=== PATIENT | female | born 1935 | race Caucasian/White ===

== ENCOUNTER → 2017-08-17 12:37 | Outpatient (CLI) | payer OTHER, SELFPAY ==
--- NOTE | 2017-08-17 | DI.MRI.S_ITS ---
PROCEDURE: MR THORACIC SPINE WO CON INDICATIONS: RADICULOPATHY CERVICAL/THORACIC/LUMBAR SPINE TECHNIQUE: Noncontrast sagittal T1 spine echo and T2 fast spin echo, sagittal STIR, axial T1 and T2 fast spin echo through the thoracic spine. COMPARISON: [facility], , MRI T-SPINE W/O CONTRAST, 05/12/2011, 10:55. [facility], , CT THORAX W/O CONTRAST, 08/28/2008, 7:16. FINDINGS: Image quality: Excellent. Alignment and Curvature: There is grade 1T1-T2, T2-T3 and T3-T4 degenerative anterolisthesis. Bone Marrow: Reactive endplate change is noted adjacent to the T2-T3, T3-T4, T4-T5, T5-T6, T6-T7, T7-T8, T8-T9, T9-T10 and T10-T11 discs. No acute vertebral body compression fractures. Spinal Cord: Visualized spinal cord is normal in size and signal. Paraspinous Soft Tissues: No paravertebral masses. Miscellaneous: Severe T2-T3, T3-T4, T4-T5, T5-T6, T6-T7, T7-T8, T8-T9 and T9-T10 degenerative changes are noted. Moderate T1-T2, T10-T11 and T11-T12 degenerative changes. Severe T3-T4, T10-T11 and T11-T12 facet hypertrophy. Mild T1-T2, T2-T3, T4-T5, T5-T6, T6-T7, T7-T8, T8-T9 and T9-T10 facet hypertrophy. Diffuse T2-T3, T3-T4, T4-T5, T5-T6, T7-T8, T8-T9, T9-T10 and T10-T11 disc bulge noted. Central T11-T12 disc protrusion. Moderate to severe T11-T12 central canal narrowing. Moderate T10-T11 central canal narrowing Mild T9-T10 central canal narrowing. Severe bilateral T11-T12 neural foraminal narrowing. There is flattening deformity of the exiting T11 nerve roots secondary to neural foraminal narrowing. IMPRESSION: 1. Multilevel degenerative disc disease. 2. Multilevel facet arthropathy. 3. Moderate to severe T11-T12 central canal narrowing. Moderate T10-T11 central canal narrowing. Mild T9-T10 central canal narrowing. 4. Severe bilateral T11-T12 neural foraminal narrowing. 5. Flattening deformity exiting T11 nerve roots secondary to neural foraminal narrowing. Please correlate with clinical data. Dictated by: Saira Samuel MD, PhD on 08/17/2017 at 16:05 Approved by: Saira Samuel MD, PhD on 08/17/2017 at 16:15
--- NOTE | 2017-08-17 | DI.MRI.S_ITS ---
PROCEDURE: MR LUMBAR SPINE WO CON INDICATIONS: RADICULOPATHY CERVICAL/THORACIC/LUMBAR SPINE TECHNIQUE: Noncontrast sagittal T1 spin echo and T2 fast echo, sagittal STIR, axial T1 and T2 fast spin echo through the lumbar spine. In cases with scoliosis, additional coronal T2 fast spin echo may be performed. COMPARISON: [facility], [facility], MRI L-SPINE W/O CONTRAST, 05/12/2011, 10:24. FINDINGS: Image quality: Excellent. Alignment and Curvature: There is grade 1 L5-S1 spondylolisthesis secondary to bilateral L5 pars interarticularis defects. Bone Marrow: Reactive endplate change is noted adjacent to the L2-L3, L3-L4, L4-L5 and L5-S1 discs. No acute vertebral body compression fractures. Spinal Cord: Conus medullaris terminates at the T12-L1 disc level. Visualized cord demonstrates normal signal and size. Paraspinous Soft Tissues: No paravertebral masses. Bilateral renal cysts. T12-L1: Loss of disc space signal. Large central disc extrusion. Mild central canal secondary to disc disease. Mild bilateral neural foraminal narrowing secondary to disc disease. No neural impingement. L1-L2: Loss of disc signal and mild loss of disc height. Mild to moderate diffuse disc bulge. Mild narrowing of the central canal secondary to disc disease. Mild bilateral neural foraminal narrowing secondary to disease. No neural impingement. L2-L3: Loss of disc signal and height. Mild to moderate diffuse disc bulge. Mild facet and moderate ligamentum flavum hypertrophy. Moderate narrowing of the central canal secondary to disc disease and posterior element hypertrophy. Severe right and mild left neural foraminal narrowing secondary to disc and facet disease with flattening deformity of the exiting right L2 nerve root. L3-L4: Loss of disc signal and height. Mild to moderate diffuse disc bulge. Mild facet and severe ligamentum flavum hypertrophy. Severe central stenosis secondary to disc disease and posterior element hypertrophy. Moderate right and severe left neural foraminal narrowing secondary to disc and facet disease with flattening deformity the exiting left L3 nerve root. L4-L5: Loss of disc signal. Mild to moderate diffuse disc bulge. Moderate facet hypertrophy. No central stenosis. Moderate to severe right and severe left neural foraminal narrowing secondary to disc and facet disease with slight flattening deformity the exiting right L4 nerve root and marked flattening and deformity exiting left L4 nerve root. L5-S1: Loss of disc signal and height. Mild, diffuse disc bulge. Moderate bilateral facet hypertrophy. No central stenosis. Severe bilateral neural foraminal narrowing secondary to disc disease in his neck spondylolisthesis with flattening deformity exiting L5 nerve roots bilaterally. IMPRESSION: 1. Grade 1 L5-S1 isthmic spondylolisthesis. 2. Multilevel degenerative disc disease. 3. Multilevel facet arthropathy. 4. Severe L3-L4 central canal stenosis. Moderate L2-L3 central canal narrowing. Mild T12-L1 and L1-L2 Central canal narrowing. 5. Severe bilateral L5-S1 neural foraminal narrowing. Moderate to severe right and severe left L4-L5 neural foraminal narrowing. Moderate right and severe left L3-L4 neural foraminal narrowing. Severe right and mild left L2-L3 neural foraminal narrowing. Mild bilateral T12-L1 and L1-L2 neural foraminal narrowing. Dictated by: Saira Samuel MD, PhD on 08/17/2017 at 16:38 Approved by: Saria Samuel MD, PhD on 08/17/2017 at 16:45
--- NOTE | 2017-08-17 | DI.MRI.S_ITS ---
PROCEDURE: MR CERVICAL SPINE WO CON INDICATIONS: RADICULOPATHY CERVICAL/THORACIC/LUMBAR SPINE TECHNIQUE: Noncontrast sagittal T1 spin echo and T2 fast spin echo, sagittal STIR, foraminal oblique sagittal T2 fast spin echo, and axial gradient echo or T2 fast spin echo through the cervical spine. COMPARISON: None. FINDINGS: Image quality: Excellent. Alignment and Curvature: There is trace C7-T1 anterolisthesis. Bone Marrow: Reactive endplate change is noted adjacent to the C3-C4, C4-C5, C5-C6 and C6-C7 discs. Spinal Cord: Visualized spinal cord has normal size and signal. No cerebellar tonsillar herniation. Paraspinous Soft Tissues: No paravertebral masses. Prevertebral soft tissues are normal in thickness. C2-C3: Loss of disc signal and height. Mild, diffuse disc bulge. Mild narrowing the central canal secondary to disc disease. Mild right facet hypertrophy. Severe right and mild left neural foraminal narrowing secondary to disc disease and right facet hypertrophy with flattening deformity of the exiting right C3 nerve root. C3-C4: Loss of disc signal and height. Mild, diffuse disc bulge. Mild central canal secondary to disc disease. Mild bilateral facet and uncovertebral joint hypertrophy. Severe bilateral neural foraminal narrowing secondary to disc disease, facet hypertrophy and uncovertebral joint hypertrophy with flattening deformity the exiting C4 nerve roots bilaterally. C4-C5: Loss of disc signal and height. Mild, diffuse disc bulge. Large central disc protrusion superimposed on diffuse disc bulge with severe narrowing of the central canal secondary to disc disease. Mild bilateral facet and uncovertebral joint hypertrophy. Severe bilateral neural foraminal narrowing secondary to disc disease, facet hypertrophy and uncovertebral joint hypertrophy with flattening deformity exiting C5 nerve roots bilaterally. C5-C6: Loss of disc signal and height. Moderate, diffuse disc bulge. Severe narrowing the central canal secondary to disc disease. Moderate bilateral facet hypertrophy. Mild bilateral uncovertebral joint hypertrophy. Severe bilateral neural foraminal narrowing secondary to disc disease, facet hypertrophy and uncovertebral joint hypertrophy with flattening deformity of the exiting C6 nerve roots bilaterally. C6-C7: Loss of disc signal and height. Mild, diffuse disc bulge. Mild narrowing of the central canal secondary to disc disease. Mild bilateral facet hypertrophy. Mild bilateral uncovertebral joint hypertrophy. Severe bilateral neural foraminal narrowing secondary to disc disease, facet hypertrophy and uncovertebral joint hypertrophy with flattening deformity of the exiting C7 nerve roots bilaterally. C7-T1: Loss of disc signal. No central stenosis. No neural foraminal narrowing. No neural impingement. IMPRESSION: 1. Multilevel degenerative disc disease. 2. Multilevel facet hypertrophy and uncovertebral joint hypertrophy. 3. Severe C4-C5 and C5-C6 the central canal narrowing. Mild C2-C3, C3-C4 and C6-C7 central canal narrowing. 4. Severe bilateral C3-C4, C4-C5, C5-C6 and C6-C7 neural foraminal narrowing. Severe right and mild left C2-C3 neural foraminal narrowing Dictated by: Saira Samuel MD, PhD on 08/17/2017 at 16:46 Approved by: Saira Samuel MD, PhD on 08/17/2017 at 16:53
== END ==
PROVIDERS: PCP Family Medicine; Visit Provider Psychiatry & Neurology Neurology
DX: M47.814 Spondylosis without myelopathy or radiculopathy, thoracic region (principal); M99.72 Connective tissue and disc stenosis of intervertebral foramina of thoracic region; M43.17 Spondylolisthesis, lumbosacral region; M51.36 Other intervertebral disc degeneration, lumbar region; M47.816 Spondylosis without myelopathy or radiculopathy, lumbar region; M48.061 Spinal stenosis, lumbar region without neurogenic claudication; M50.30 Other cervical disc degeneration, unspecified cervical region; M47.812 Spondylosis without myelopathy or radiculopathy, cervical region; M99.71 Connective tissue and disc stenosis of intervertebral foramina of cervical region
CPT/HCPCS: 72141; 72146; 72148

== ENCOUNTER → 2018-02-14 11:00 | Outpatient (CLI) | payer OTHER, SELFPAY ==
[2018-02-14 12:26] LABS: Add Manual Diff / Slide Review NO; Eosinophils Percent Auto 1.3 % (2-4); Hematocrit 37.9 % (36-46); Hemoglobin 12.6 g/dL (12.0-16.0); Lymphocytes Percent Auto 20.8 % (25-40); Mean Corpuscular HGB Conc 33.4 % (30-36); Mean Corpuscular Hemoglobin 32.8 PG (26-34); Mean Corpuscular Volume 98.1 fL (80-100); Monocytes Percent Auto 10.6 % (3-14); Neutrophils Absolute Auto 4600 /uL (3000-5900); Neutrophils Percent Auto 66.3 % (50-75); Platelet Count 220 X10^3/uL (150-400); Red Blood Cell Count 3.86 X10^6/uL (4.0-5.2); Red Cell Distribution Width 13.2 % (11.6-14.8); White Blood Cell Count 6.9 X10^3/uL (4.5-11.0)
[2018-02-14 12:50] LABS: Erythrocyte Sedimentation Rate 7 MM/HR (0-20)
[2018-02-14 20:29] LABS: C-Reactive Protein Quant < 0.5 mg/dL (<1.0)
== END ==
PROVIDERS: PCP Family Medicine; Visit Provider Specialist
DX: M31.6 Other giant cell arteritis (principal)
CPT/HCPCS: 36415; 85025; 85651; 86140

== ENCOUNTER → 2018-03-05 09:27 | Outpatient (CLI) | payer OTHER, SELFPAY ==
--- NOTE | 2018-03-05 | DI.RAD.S_ITS ---
PROCEDURE: XR SHOULDER LT MIN 2V INDICATIONS: SHOULDER PAIN TECHNIQUE: 3 views of the shoulder were acquired. COMPARISON: None. FINDINGS: Bones: No fractures or dislocations. No suspicious bony lesions. Visualized ribs appear intact. Mild to moderate glenohumeral joint and acromioclavicular joint osteophyte is is seen. Soft tissues: No suspicious soft tissue calcifications. IMPRESSION: Mild to moderate left shoulder joint osteoarthritis. No fracture or dislocation. Dictated by: Henrique Ledesma M.D. on 03/05/2018 at 14:10 Approved by: Henrique Ledesma M.D. on 03/05/2018 at 14:11
--- NOTE | 2018-03-05 09:28 | DI.MRI.S_ITS ---
PROCEDURE: MR HEAD/BRAIN WO CON INDICATIONS: New worsening head pain with standing, gait disturbance and TECHNIQUE: Noncontrast axial T1 spin echo, axial T2 fast spin echo, sagittal and axial FLAIR, coronal T2 fast spin echo, axial gradient echo, axial diffusion and ADC through the brain. COMPARISON: [facility], MR, BRAIN W&WO CONTRAST, 10/25/2012, 13:27. FINDINGS: Image quality: Excellent. CSF Spaces: Basal cisterns are patent. No extra-axial fluid collections. Ventricles are normal in size and shape. Brain: No intracranial masses or hemorrhage. Garcia/white matter interface is normal. Brainstem appears normal. Diffusion-weighted images demonstrate no acute ischemic insult. No areas of encephalomalacia. Minimal periventricular and subcortical white matter chronic microvascular ischemic changes noted. Mild, diffuse cerebral volume loss. Normal intravascular flow voids are present. Skull and face: Calvarium has normal marrow signal. Orbits appear normal. Sinuses: Mild mucosal thickening noted in the right maxillary sinus. The mastoids are clear. IMPRESSION: 1. No acute intracranial disease process. 2. No areas of acute or chronic infarction. 3. No abnormal intracranial mass. 4. Mild, diffuse cerebral on loss stable compared to 10/25/12. 5. Minimal periventricular and subcortical white matter chronic microvascular ischemic changes stable compared to 10/25/2012. Dictated by: Saira Samuel MD, PhD on 03/05/2018 at 17:08 Approved by: Saira Samuel MD, PhD on 03/05/2018 at 17:13
== END ==
PROVIDERS: Family Provider Psychiatry & Neurology Neurology; PCP Family Medicine; Referring Provider Orthopaedic Surgery Sports Medicine; Visit Provider Specialist
DX: R51 Headache (principal); M19.012 Primary osteoarthritis, left shoulder; M25.512 Pain in left shoulder; R26.9 Unspecified abnormalities of gait and mobility; R20.0 Anesthesia of skin
CPT/HCPCS: 70551; 73030

== ENCOUNTER → 2018-05-04 13:22 | Outpatient (CLI) | payer OTHER, SELFPAY | PROVIDERS: Family Provider Family Medicine; PCP Family Medicine; Visit Provider Psychiatry & Neurology Neurology | DX: G62.9 Polyneuropathy, unspecified (principal) ==

== ENCOUNTER → 2018-05-09 10:39 | Outpatient (CLI) | payer OTHER, SELFPAY ==
[2018-05-09 14:02] LABS: HEMOLYSIS < 15 (0-50); Iron 89 ug/dL (37-170)
[2018-05-09 14:13] LABS: Percent Iron Saturation 34 % (15-50); Total Iron Binding Capacity 260 ug/dL (265-497); Transferrin 211 mg/dL (206-381)
[2018-05-09 15:09] LABS: Folate > 20.0 ng/mL (2.76-20.0); Vitamin B12 749 pg/mL (239-931)
[2018-05-11 17:21] LABS: Zinc 64 mcg/dL (60-130)
[2018-05-13 05:37] LABS: Vitamin B1 135 nmol/L (78-185)
[2018-05-16 11:24] LABS: Arsenic < 2 mcg/L (< 23); Lead, Blood 13 mcg/dL (< 5)
[2018-05-16 13:17] LABS: Mercury, Blood < 2
== END ==
PROVIDERS: Family Provider Family Medicine; PCP Family Medicine; Visit Provider Psychiatry & Neurology Neurology
DX: G62.9 Polyneuropathy, unspecified (principal)
CPT/HCPCS: 36415; 82300; 82525; 82607; 82746; 83540; 83550; 83735; 83825; 84425; 84630

== ENCOUNTER → 2018-07-12 13:11 | Outpatient (CLI) | payer OTHER, SELFPAY ==
[2018-07-12 17:23] LABS: BUN Creatinine Ratio 19.1 (6-22); Blood Urea Nitrogen 21 mg/dL (7-17); Calcium 9.9 mg/dL (8.4-10.2); Carbon Dioxide 25 mmol/L (22-32); Chloride 104 mmol/L (98-107); Estimated Glomerular Filt Rate 47.7 mL/min (>60); Glucose 82 mg/dL (80-110); HEMOLYSIS < 15 (0-50); Sodium 139 mmol/L (137-145)
[2018-07-12 17:38] LABS: Free T4, Direct Thyroxine 1.47 ng/dL (0.78-2.19)
== END ==
PROVIDERS: Family Provider Psychiatry & Neurology Neurology; PCP Family Medicine; Visit Provider Family Medicine
DX: E03.8 Other specified hypothyroidism (principal); E06.3 Autoimmune thyroiditis; Z51.81 Encounter for therapeutic drug level monitoring
CPT/HCPCS: 36415; 80048; 84439

== ENCOUNTER → 2018-08-17 08:32 | Outpatient (CLI) | payer OTHER, SELFPAY ==
[2018-08-17 10:08] LABS: Add Manual Diff / Slide Review NO; Basophils Absolute Auto 100 /uL (0-100); Eosinophils Absolute Auto 100 /uL (0-450); Eosinophils Percent Auto 2.1 % (2-4); Hematocrit 34.2 % (36-46); Hemoglobin 11.7 g/dL (12.0-16.0); Lymphocytes Absolute Auto 1400 /uL (1100-4500); Lymphocytes Percent Auto 22.9 % (25-40); Mean Corpuscular HGB Conc 34.2 % (30-36); Mean Corpuscular Hemoglobin 32.8 PG (26-34); Monocytes Absolute Auto 600 /uL (0-900); Monocytes Percent Auto 10.3 % (3-14); Neutrophils Absolute Auto 4000 /uL (1500-7000); Neutrophils Percent Auto 63.7 % (50-75); Platelet Count 215 X10^3/uL (150-400); Red Blood Cell Count 3.56 X10^6/uL (4.0-5.2); Red Cell Distribution Width 12.9 % (11.6-14.8); White Blood Cell Count 6.2 X10^3/uL (4.5-11.0)
[2018-08-17 10:15] LABS: Alanine Aminotransferase 16 IU/L (9-52); Albumin 4.4 g/dL (3.5-5.0); Albumin Globulin Ratio 1.5 (1.0-2.8); Alkaline Phosphatase 79 U/L (38-126); Aspartate Aminotransferase 27 IU/L (14-36); Bilirubin Total 0.4 mg/dL (0.2-1.3); Blood Urea Nitrogen 24 mg/dL (7-17); Calcium 9.9 mg/dL (8.4-10.2); Carbon Dioxide 24 mmol/L (22-32); Chloride 103 mmol/L (98-107); Estimated Glomerular Filt Rate 43.1 mL/min (>60); Globulin 2.9 g/dL (1.7-4.1); Glucose 102 mg/dL (80-110); HEMOLYSIS < 15 (0-50); Potassium 4.7 mmol/L (3.4-5.1); Sodium 137 mmol/L (137-145); Total Protein 7.3 g/dL (6.3-8.2)
[2018-08-17 11:24] LABS: Free T4, Direct Thyroxine 1.28 ng/dL (0.78-2.19)
[2018-08-17 11:37] LABS: Thyroid Stimulating Hormone 0.49 uIU/mL (0.47-4.68)
== END ==
PROVIDERS: PCP Family Medicine; Visit Provider Family Medicine
DX: Z86.2 Personal history of diseases of the blood and blood-forming organs and certain disorders involving the immune mechanism (principal); K92.1 Melena; E03.8 Other specified hypothyroidism; E06.3 Autoimmune thyroiditis; I10 Essential (primary) hypertension
CPT/HCPCS: 36415; 80053; 84439; 84443; 85025

== ENCOUNTER → 2018-12-14 09:27 | Outpatient (CLI) | payer OTHER, SELFPAY ==
[2018-12-14 10:15] LABS: Add Manual Diff / Slide Review NO; Basophils Absolute Auto 100 /uL (0-100); Basophils Percent Auto 1.4 % (0-2); Eosinophils Absolute Auto 100 /uL (0-450); Eosinophils Percent Auto 2.3 % (2-4); Hematocrit 38.6 % (36-46); Lymphocytes Absolute Auto 1100 /uL (1100-4500); Lymphocytes Percent Auto 22.7 % (25-40); Mean Corpuscular HGB Conc 33.7 % (30-36); Mean Corpuscular Volume 95.1 fL (80-100); Monocytes Absolute Auto 600 /uL (0-900); Monocytes Percent Auto 11.9 % (3-14); Neutrophils Absolute Auto 2900 /uL (1500-7000); Neutrophils Percent Auto 61.7 % (50-75); Platelet Count 171 X10^3/uL (150-400); Red Blood Cell Count 4.06 X10^6/uL (4.0-5.2); Red Cell Distribution Width 14.2 % (11.6-14.8); White Blood Cell Count 4.7 X10^3/uL (4.5-11.0)
[2018-12-14 10:50] LABS: HEMOLYSIS < 15 (0-50); Iron 109 ug/dL (37-170)
[2018-12-14 10:52] LABS: Alanine Aminotransferase 18 IU/L (9-52); Albumin 4.3 g/dL (3.5-5.0); Albumin Globulin Ratio 1.4 (1.0-2.8); Alkaline Phosphatase 87 U/L (38-126); Aspartate Aminotransferase 26 IU/L (14-36); BUN Creatinine Ratio 18.3 (6-22); Bilirubin Total 0.6 mg/dL (0.2-1.3); Blood Urea Nitrogen 22 mg/dL (7-17); Calcium 10.2 mg/dL (8.4-10.2); Carbon Dioxide 25 mmol/L (22-32); Chloride 103 mmol/L (98-107); Estimated Glomerular Filt Rate 43.1 mL/min (>60); Glucose 97 mg/dL (80-110); HEMOLYSIS < 15 (0-50); Sodium 139 mmol/L (137-145); Total Protein 7.3 g/dL (6.3-8.2)
[2018-12-14 10:54] LABS: Potassium 5.4 mmol/L (3.4-5.1)
[2018-12-14 11:04] LABS: Percent Iron Saturation 41 % (15-50); Total Iron Binding Capacity 269 ug/dL (265-497); Transferrin 233 mg/dL (206-381)
[2018-12-14 11:15] LABS: Free T4, Direct Thyroxine 1.66 ng/dL (0.78-2.19)
[2018-12-14 11:29] LABS: Thyroid Stimulating Hormone 0.36 uIU/mL (0.47-4.68)
== END ==
PROVIDERS: PCP Family Medicine; Visit Provider Family Medicine
DX: Z86.2 Personal history of diseases of the blood and blood-forming organs and certain disorders involving the immune mechanism (principal); K92.1 Melena; E03.8 Other specified hypothyroidism; E06.3 Autoimmune thyroiditis
CPT/HCPCS: 36415; 80053; 83540; 83550; 84439; 84443; 85025

== ENCOUNTER → 2019-01-22 12:20 | Outpatient (CLI) | payer OTHER, SELFPAY ==
--- NOTE | 2019-01-22 12:24 | DI.RAD.S_ITS ---
PROCEDURE: XR CERVICAL SPINE 4V OR 5V INDICATIONS: Neck pain TECHNIQUE: 6 views of the cervical spine acquired. COMPARISON: None. FINDINGS: Bones: No fractures or dislocations to the C7 level. Multilevel degenerative endplate sclerosis and spurring. Diffuse facet arthropathy. Straightening of the normal lordotic curvature. Severe diffuse narrowing of the cervical disc spaces with mild sparing at C2-C3 and C3-C4. On the right, diffuse moderate narrowing of the neural foramen from C4-C5, C5-C6 On the left, moderate to severe narrowing of the C4-C5 foramen Soft tissues: No prevertebral soft tissue swelling. IMPRESSION: Multilevel cervical spondylosis and facet arthropathy as detailed above. Bilateral bony foraminal narrowing Dictated by: Sriram Ray M.D. on 01/22/2019 at 17:01 Approved by: Sriram Ray M.D. on 01/22/2019 at 17:04
== END ==
PROVIDERS: Family Provider Family Medicine; PCP Family Medicine; Visit Provider Physical Medicine & Rehabilitation
DX: M54.2 Cervicalgia (principal); R51 Headache; M48.02 Spinal stenosis, cervical region; M47.22 Other spondylosis with radiculopathy, cervical region
CPT/HCPCS: 72050

== ENCOUNTER → 2019-01-22 12:56 | Outpatient (CLI) | payer OTHER, SELFPAY ==
[2019-01-22 13:52] LABS: BUN Creatinine Ratio 18.3 (6-22); Blood Urea Nitrogen 22 mg/dL (7-17); Calcium 9.2 mg/dL (8.4-10.2); Carbon Dioxide 26 mmol/L (22-32); Chloride 103 mmol/L (98-107); Estimated Glomerular Filt Rate 43.1 mL/min (>60); Glucose 101 mg/dL (80-110); HEMOLYSIS < 15 (0-50); Potassium 5.1 mmol/L (3.4-5.1); Sodium 137 mmol/L (137-145)
== END ==
PROVIDERS: PCP Family Medicine; Visit Provider Family Medicine
DX: I10 Essential (primary) hypertension (principal)
CPT/HCPCS: 36415; 80048

== ENCOUNTER 2019-02-07 09:53 | Outpatient (CLI) | payer OTHER, SELFPAY ==
[2019-02-07] VITALS (9 sets, daily range): BP systolic 98–157; BP diastolic 53–86; PULSE 58–81; RESP 14–18; TEMP 36.3; O2SAT 93–100
--- NOTE | 2019-02-07 09:55 | DI.RAD.S_ITS ---
PROCEDURE: PAIN C/T INTERLAMINAR INJECT INDICATIONS: SPINAL STENOSIS FINDINGS: Fluoroscopic spot filming was performed to verify placement of spinal needles at the C6-C7 level(s), as labeled on the films. Appropriate location(s) of the needle tip(s) was confirmed by injection of iodinated contrast. Dictated by: Sriram Ray M.D. on 02/07/2019 at 14:51 Approved by: Sriram Ray M.D. on 02/07/2019 at 14:52
[2019-02-07] MEDS: MIDAZOLAM 5 MG/5 ML VIAL IV (11:23)
[2019-02-07] MEDS: IOPAMIDOL 15 ML VIAL 3 ML INJ (11:30)
[2019-02-07] MEDS: LIDOCAINE 1% 20 ML 5 ML INJ (11:31)
[2019-02-07] MEDS: DEXAMETHASONE 10 MG/ML VIAL 30 MG INJ (11:31)
--- NOTE | 2019-02-07 11:34 | PC.NURSE ---
MD AWARE OF PERSISTENTLY FALLING WAYNE'S DURING PROCEDURE. PT AROUSABLE AND ABLE TO FOLLOW COMMANDS AT ALL TIMES.
--- NOTE | 2019-02-07 11:35 | PC.NURSE ---
ASSISTING PT OFF TABLE AND TRANSPORTING TO POST PROC AREA IN STABLE CONDITION.
--- NOTE | 2019-02-07 11:41 | PM.PROC.1 ---
Procedures Date/Time Date of procedure: 02/07/19 Time of procedure: 11:41 General Procedure description: PREOP DIAGNOSIS 1. CERVICAL STENOSIS, 2. CERVICAL HNP WITH UPPER EXTREMITY RADICULAR FEATURES, POST OP DIAGNOSIS 1. CERVICAL STENOSIS, 2. CERVICAL HNP WITH UPPER EXTREMITY RADICULAR FEATURES, PROCEDURES 1. FLUORSCOPICALLY GUIDED CONTRAST CONTROLLED INTERLAMINAR EPIDURAL STEROID INJECTION - C6/7 TL SHAHID PHYSICIAN: Shayne Jones, DO INDICATIONS Aida is referred by Dr. Arora for treatment of Cervical HNP with Upper Extremity Paresthesias. FINDINGS Cervical Stenosis due to disc deterioration and nerve root irritation and nerve root irritation DESCRIPTION OF PROCEDURE Fluoroscopically guided, contrast-controlled C6/7 translaminar epidural steroid injection with conscious sedation. Following review of allergy and review of potential side effects and complications, including, but not necessarily limited to, infection, allergic reaction, local tissue breakdown, temporary as well as permanent nerve injury, stroke, paralysis, and possible , the patient indicated that patient understood and agreed to proceed. An informed consent document was signed by the patient, witnessed by a nurse, and placed in the patient's chart. Additionally, other treatment options including modalities, medications, and physical therapy were reviewed with the patient. After review of previous anaesthesic history and IV conscious sedation the patient was deemed safe to proceed with todays procedure with IV conscious sedation as ASA class II designation. Safety time-out was performed to confirm patient ID, procedure to be performed and site of procedure. IV sedation was accomplished with a combination of 3mg of Versed administered by the RN after DO order, titrated to patient comfort during the course of the procedure while the patient remained responsive to all verbal commands. In the prone position, following sterile prep and drape of the cervical region, the C6/7 translaminar space was identified fluoroscopically. The skin was anesthetized via a 25-gauge 1.5-inch needle with 1% lidocaine solution. At this point, a 25-gauge, 2.5-inch short bevel spinal needle was atraumatically introduced and advanced under fluoroscopic guidance into epidural space at the C6/7 translaminar space. Depth was confirmed on lateral view. Radiological data, including multiple fluoroscopic views of the cervical spine, reveal a spinal needle at the C6/7 translaminar space. Lateral views then show placement of the needle in the epidural space. Subsequent views show contrast material flowing superiorly and inferiorly in the epidural space. DSA fluoroscopy with live contrast injection, once again, confirmed no vascular or intrathecal uptake. At this point, using loss of resistance technique with saline and air, the epidural space was entered. Following negative aspiration, injection of approximately 1.5 cc of Isovue-200 with live fluoroscopy in the AP view confirmed epidural flow in the epidural space without vascular or intrathecal uptake observed. Subsequently, a test dose of 1 cc of 1% lidocaine solution was injected and patient was observed for two minutes without signs or symptoms of complications, including abdominal pain, shortness of breath, bilateral upper or lower extremity weakness, nausea and vomiting, prior to steroid injection. At this point, 2cc or 20mg of dexamethasone was then injected without incident. The patient tolerated the procedure well without signs or symptoms of complications prior to being transferred to the recovery area for further monitoring, The patient was then transferred to the recovery area where they were observed for an appropriate period of time after the injection. The patient reported a VAS score of 6 prior to the procedure and a post-procedure VAS of 0. Total Fluoroscopy Time: 37.0 seconds Total Conscious Time: 24min POST OP INSTRUCTIONS The patient was provided a Pain Log to continue to record their response to the target-specific procedure prior to follow-up visit with the referring provider. Additionally, specific post-injection care instructions and a contact number to our office were provided if concerns arise regarding possible complications associated with the procedure are suspected. Shayne Jones DO Complications: none
--- NOTE | 2019-02-07 17:34 | PC.NURSE ---
late entry discharge note--patient arrived for post procedure monitoring. Drowsy but awake and responding appropriately to verbal commands. VSS, O2 sats WNL on RA. Allowed to sleep for a short time. Respirations regular and unlabored. Daughter at chairside. Pain level 2/10. tolerated po without nausea. discharge instructions given and explained to patient and daughter with good understanding. Stable for discharge to home w/c to car with daughter at 1225
== END 2019-02-07 12:25 ==
PROVIDERS: PCP Family Medicine; Visit Provider Physical Medicine & Rehabilitation
DX: M48.02 Spinal stenosis, cervical region (principal); M50.123 Cervical disc disorder at C6-C7 level with radiculopathy; R20.2 Paresthesia of skin
CPT/HCPCS: 62321; 99152; J1100; J2250; J3010

== ENCOUNTER → 2019-04-29 09:14 | Outpatient (CLI) | payer MEDICARE, SELFPAY ==
[2019-04-29 10:21] LABS: Add Manual Diff / Slide Review NO; Basophils Absolute Auto 100 /uL (0-100); Eosinophils Absolute Auto 200 /uL (0-450); Hematocrit 38.3 % (36-46); Hemoglobin 12.9 g/dL (12.0-16.0); Lymphocytes Absolute Auto 1600 /uL (1100-4500); Lymphocytes Percent Auto 25.4 % (25-40); Mean Corpuscular HGB Conc 33.7 % (30-36); Mean Corpuscular Hemoglobin 32.1 PG (26-34); Mean Corpuscular Volume 95.4 fL (80-100); Monocytes Absolute Auto 800 /uL (0-900); Neutrophils Absolute Auto 3700 /uL (1500-7000); Neutrophils Percent Auto 58.6 % (50-75); Platelet Count 208 X10^3/uL (150-400); Red Blood Cell Count 4.01 X10^6/uL (4.0-5.2); Red Cell Distribution Width 13.1 % (11.6-14.8); White Blood Cell Count 6.3 X10^3/uL (4.5-11.0)
[2019-04-29 10:38] LABS: Alanine Aminotransferase 17 IU/L (<35); Albumin 4.5 g/dL (3.5-5.0); Albumin Globulin Ratio 1.5 (1.0-2.8); Alkaline Phosphatase 81 U/L (38-126); Aspartate Aminotransferase 30 IU/L (14-36); BUN Creatinine Ratio 18.3 (6-22); Bilirubin Total 0.3 mg/dL (0.2-1.3); Blood Urea Nitrogen 22 mg/dL (7-17); Calcium 9.8 mg/dL (8.4-10.2); Carbon Dioxide 25 mmol/L (22-32); Chloride 101 mmol/L (98-107); Estimated Glomerular Filt Rate 43.1 mL/min (>60); Globulin 3.1 g/dL (1.7-4.1); Glucose 119 mg/dL (80-110); HEMOLYSIS < 15 (0-50); Potassium 4.7 mmol/L (3.4-5.1); Sodium 137 mmol/L (137-145); Total Protein 7.6 g/dL (6.3-8.2)
== END ==
PROVIDERS: PCP Family Medicine; Visit Provider Psychiatry & Neurology Neurology
DX: Z51.81 Encounter for therapeutic drug level monitoring (principal)
CPT/HCPCS: 36415; 80053; 85025

== ENCOUNTER → 2019-09-19 09:25 | Outpatient (CLI) | payer MEDICARE, SELFPAY ==
[2019-09-19 10:37] LABS: Add Manual Diff / Slide Review NO; Basophils Absolute Auto 100 /uL (0-100); Basophils Percent Auto 0.9 % (0-2); Eosinophils Absolute Auto 100 /uL (0-450); Eosinophils Percent Auto 1.6 % (2-4); Hematocrit 38.1 % (36-46); Lymphocytes Absolute Auto 1200 /uL (1100-4500); Lymphocytes Percent Auto 15.5 % (25-40); Mean Corpuscular HGB Conc 34.2 % (30-36); Mean Corpuscular Hemoglobin 33.2 PG (26-34); Mean Corpuscular Volume 96.9 fL (80-100); Monocytes Absolute Auto 600 /uL (0-900); Monocytes Percent Auto 8.2 % (3-14); Neutrophils Absolute Auto 5500 /uL (1500-7000); Neutrophils Percent Auto 73.8 % (50-75); Platelet Count 216 X10^3/uL (150-400); Red Blood Cell Count 3.93 X10^6/uL (4.0-5.2); Red Cell Distribution Width 12.8 % (11.6-14.8); White Blood Cell Count 7.5 X10^3/uL (4.5-11.0)
[2019-09-19 10:44] LABS: Hemoglobin A1C% w Est Avg Glu 5.3 % (4.0-6.0)
[2019-09-19 10:53] LABS: Alanine Aminotransferase 18 IU/L (<35); Albumin 4.5 g/dL (3.5-5.0); Albumin Globulin Ratio 1.5 (1.0-2.8); Alkaline Phosphatase 84 U/L (38-126); Aspartate Aminotransferase 29 IU/L (14-36); BUN Creatinine Ratio 16.4 (6-22); Bilirubin Total 0.3 mg/dL (0.2-1.3); Blood Urea Nitrogen 19 mg/dL (7-17); Carbon Dioxide 25 mmol/L (22-32); Chloride 101 mmol/L (98-107); Estimated Glomerular Filt Rate 44.7 mL/min (>60); Glucose 138 mg/dL (80-110); HEMOLYSIS < 15 (0-50); Potassium 4.9 mmol/L (3.4-5.1); Sodium 134 mmol/L (137-145); Total Protein 7.5 g/dL (6.3-8.2)
[2019-09-19 11:24] LABS: TSH w/ Reflex to FT4 < 0.02 uIU/mL (0.47-4.68)
[2019-09-19 12:00] LABS: Free T4, Direct Thyroxine 1.47 ng/dL (0.78-2.19)
== END ==
PROVIDERS: PCP Family Medicine; Referring Provider Family Medicine; Visit Provider Family Medicine
DX: I10 Essential (primary) hypertension (principal); E03.9 Hypothyroidism, unspecified; R73.09 Other abnormal glucose; R53.83 Other fatigue
CPT/HCPCS: 36415; 80053; 83036; 84439; 84443; 85025

== ENCOUNTER → 2019-10-11 10:06 | Outpatient (CLI) | payer MEDICARE, SELFPAY ==
--- NOTE | 2019-10-11 | DI.RAD.S_ITS ---
PROCEDURE: XR HIP W PEL IF DONE LT MIN 4V INDICATIONS: Bilateral hip pain TECHNIQUE: AP pelvis with lateral view(s) of the left and right hip(s). COMPARISON: CT, KIDNEY/ URETER/BLADDER, 06/01/2011, 9:32. FINDINGS: Bones: No fractures or dislocations. Pelvic ring appears intact. No suspicious bony lesions. Mild joint narrowing with periarticular osteophyte formation. Degenerative disc and facet disease involves the inferior lumbar spine. Soft tissues: The visualized bowel gas pattern is normal. No suspicious soft tissue calcifications. IMPRESSION: Mild symmetric hip joint degeneration. Dictated by: Sachin Alberto [facility] Interpreted: Eulogio Ivory MD on 10/11/2019 at 11:03 Approved by: Eulogio Ivory M.D. on 10/11/2019 at 14:02
--- NOTE | 2019-10-11 | DI.CT.S_ITS ---
PROCEDURE: CT CHEST HIGH RESOLUTION INDICATIONS: Generalized hyperhidrosis TECHNIQUE: Noncontrast 1.0 and 5.0 mm thick contiguous axial sections from the pulmonary apex to the posterior costophrenic angles, with 7 mm thick coronal and sagittal MIP reformats. 1 mm thick dynamic expiratory images acquired through the upper, mid, and lower lungs. 1.0 mm thick axial sections acquired from the reggie to the posterior costophrenic angles in the prone end-inspiration position. For radiation dose reduction, the following was used: automated exposure control, adjustment of mA and/or kV according to patient size. COMPARISON: None. FINDINGS: Image quality: Excellent. Lungs: There are several scattered areas of linear scarring within the lung parenchyma bilaterally but no sign of active airspace disease or underlying pulmonary fibrosis or bronchiectasis. Pleura: No pleural effusions or pneumothorax. Mediastinum: Heart size is normal. No pericardial effusion. Thoracic aorta and central pulmonary arteries are normal in size. Esophagus is normal in caliber. Bones and chest wall: No suspicious bony lesions. No vertebral body compression fractures. Abdomen: Visualized upper abdominal solid organs and bowel loops appear normal. IMPRESSION: There is minimal linear scarring at the lung parenchyma bilaterally and no sign of alveolitis or pulmonary fibrosis. No CHF is seen. Dictated by: Eulogio Ivory M.D. on 10/11/2019 at 13:43 Approved by: Eulogio Ivory M.D. on 10/11/2019 at 13:45
== END ==
PROVIDERS: PCP Family Medicine; Referring Provider Internal Medicine Pulmonary Disease; Visit Provider Internal Medicine Pulmonary Disease
DX: R61 Generalized hyperhidrosis (principal); J47.9 Bronchiectasis, uncomplicated; M25.551 Pain in right hip; M25.552 Pain in left hip; M16.0 Bilateral primary osteoarthritis of hip
CPT/HCPCS: 71250; 73522

== ENCOUNTER → 2019-12-14 09:44 | Outpatient (CLI) | payer MEDICARE, SELFPAY ==
[2019-12-16 10:48] LABS: COVID19 Sendout Not Detected (Not Detect)
== END ==
PROVIDERS: PCP Family Medicine; Visit Provider Nurse Practitioner
DX: Z11.59 Encounter for screening for other viral diseases (principal)
CPT/HCPCS: 87635

== ENCOUNTER 2019-12-17 09:38 | Outpatient (CLI) | payer MEDICARE, SELFPAY ==
[2019-12-17] VITALS (10 sets, daily range): BP systolic 109–170; BP diastolic 56–85; PULSE 65–84; RESP 16–26; TEMP 35.9; O2SAT 93–99
--- NOTE | 2019-12-17 09:42 | DI.RAD.S_ITS ---
PROCEDURE: PAIN C/T FACET INJ/BLK 1ST L INDICATIONS: SPINAL STENOSIS COMPARISON: Located [facility], , PAIN C/T INTERLAMINAR INJECT, 02/07/2019, 10:49. FINDINGS: Fluoroscopic spot filming was performed to verify placement of spinal needles at the C4-C5 and C5-C6 levels on the left, as labeled on the films. Appropriate location(s) of the needle tip(s) was confirmed by injection of iodinated contrast. IMPRESSION: Intraprocedural examination within normal limits. Dictated by: Panfilo Arias M.D. on 12/17/2019 at 13:58 Approved by: Panfilo Arias M.D. on 12/17/2019 at 13:59
[2019-12-17 10:20] LABS: Add Manual Diff / Slide Review NO; Basophils Absolute Auto 100 /uL (0-100); Eosinophils Absolute Auto 100 /uL (0-450); Eosinophils Percent Auto 2.2 % (2-4); Hematocrit 35.1 % (36-46); Hemoglobin 11.8 g/dL (12.0-16.0); Lymphocytes Absolute Auto 1300 /uL (1100-4500); Lymphocytes Percent Auto 19.5 % (25-40); Mean Corpuscular HGB Conc 33.6 % (30-36); Mean Corpuscular Hemoglobin 32.1 PG (26-34); Mean Corpuscular Volume 95.6 fL (80-100); Monocytes Absolute Auto 700 /uL (0-900); Monocytes Percent Auto 10.6 % (3-14); Neutrophils Absolute Auto 4600 /uL (1500-7000); Neutrophils Percent Auto 66.7 % (50-75); Platelet Count 214 X10^3/uL (150-400); Red Blood Cell Count 3.68 X10^6/uL (4.0-5.2); Red Cell Distribution Width 13.1 % (11.6-14.8); White Blood Cell Count 6.9 X10^3/uL (4.5-11.0)
[2019-12-17 10:42] LABS: Alanine Aminotransferase 17 IU/L (<35); Albumin Globulin Ratio 1.4 (1.0-2.8); Alkaline Phosphatase 79 U/L (38-126); Aspartate Aminotransferase 29 IU/L (14-36); BUN Creatinine Ratio 21.4 (6-22); Bilirubin Total 0.3 mg/dL (0.2-1.3); Blood Urea Nitrogen 24 mg/dL (7-17); Calcium 9.6 mg/dL (8.4-10.2); Carbon Dioxide 28 mmol/L (22-32); Chloride 103 mmol/L (98-107); Estimated Glomerular Filt Rate 46.6 mL/min (>60); Globulin 2.8 g/dL (1.7-4.1); Glucose 100 mg/dL (80-110); HEMOLYSIS < 15 (0-50); Potassium 4.9 mmol/L (3.4-5.1); Sodium 137 mmol/L (137-145); Total Protein 6.8 g/dL (6.3-8.2)
[2019-12-17 10:56] LABS: Free T3, Triiodothyronine Free 3.21 pg/mL (2.77-5.27); Free T4, Direct Thyroxine 1.34 ng/dL (0.78-2.19)
[2019-12-17] MEDS: MIDAZOLAM 5 MG/5 ML VIAL IV (11:01)
[2019-12-17] MEDS: IOPAMIDOL 15 ML VIAL 3 ML INJ (11:04)
[2019-12-17] MEDS: DEXAMETHASONE 10 MG/ML VIAL 20 MG INJ (11:04)
[2019-12-17] MEDS: BUPIVACAINE 0.5% (PF) VIAL 2 ML INJ (11:04)
--- NOTE | 2019-12-17 11:12 | P.PCN_ITS ---
Date/Time/Diagnoses Date of procedure: 12/17/19 Time of procedure: 11:13 Pre-procedure diagnosis: 1. FACET ARTHROPATHY 2. AXIAL NECK PAIN Post-procedure diagnosis: same Procedure Notes Procedure: 1. FLUOROSCOPICALLY GUIDED, CONTRAST-CONTROLLED LEFT C4/5, C5/6 FACET JOINT INJECTIONS WITH CONSCIOUS SEDATION. Indications: Aida is referred by Dr. Arora for treatment of Axial Neck Pain Physician: Shayne Jones Total Fluoroscopy time (seconds): 8 Total sedation minutes: 9 Complications: none Procedure in detail & Post-procedure care: DESCRIPTION OF PROCEDURE Fluoroscopically guided, contrast-controlled left C4/5, C5/6 facet joint injections with conscious sedation. Following review of allergy and review of potential side effects and complications, including, but not necessarily limited to, infection, allergic reaction, local tissue breakdown, stroke, temporary or permanent nerve injury and paralysis, the patient indicated that the patient understood and agreed to proceed. An informed consent document was signed by the patient, witnessed by a nurse, and placed in the patient's chart. Additionally, other treatment options including medications, modalities, and physical therapy were reviewed with the patient. After review of previous anaesthesic history and IV conscious sedation the patient was deemed safe to proceed with today?s procedure with IV conscious sedation as ASA class II designation. Safety time-out was performed to confirm patient ID, procedure to be performed and site of procedure. IV sedation was accomplished with a combination of 3mg of Versed was administered by the RN after DO order, titrated to patient comfort during the course of the procedure while the patient remained responsive to all verbal commands In the prone position, following sterile prep and drape of the cervical spine region, the posterior aspect of the right C4/5, C5/6 facet joints were identified fluoroscopically. The skin was anesthetized via a 25-gauge 1.5-inch needle with 1% lidocaine solution into the corresponding facet joints. At this point, a 25-gauge 2.5-inch spinal needle was atraumatically introduced and advanced under fluoroscopic guidance into the corresponding facet joints. Following negative aspiration, injections of approximately 0.2-cc of Isovue 200 confirmed interarticular placement without vascular uptake. At this point, a total of 1cc including 0.5 cc or 5mg of dexamethasone combined with 0.5cc of 1% lidocaine solution was injected without complication into each of the corresponding facet joints. The patient tolerated the procedure well without signs or symptoms of complications prior to transfer to the recovery area continued monitoring without incident. The patient was then transferred to the recovery area where they were observed for an appropriate period of time after the injection. The patient reported a VAS score of 7 prior to the procedure and a post- procedure VAS of 2. POST OP INSTRUCTIONS They were provided a Pain Log to continue to record their response to the target-specific procedure prior to their follow-up visit with their referring physician. Additionally, specific post-injection care instructions and a contact number to our office were provided if concerns arise regarding possible complications associated with the procedure are suspected.
== END 2019-12-17 11:57 | disposition home or self-care (01) ==
LOC: RAD 09:39
PROVIDERS: PCP Family Medicine; Referring Provider Family Medicine; Visit Provider Physical Medicine & Rehabilitation
DX: M47.812 Spondylosis without myelopathy or radiculopathy, cervical region (principal); M54.2 Cervicalgia; E03.8 Other specified hypothyroidism; E06.3 Autoimmune thyroiditis; R53.83 Other fatigue
CPT/HCPCS: 36415; 64490; 64491; 80053; 84439; 84443; 84481; 85025; J1100; J2250; J3010

== ENCOUNTER → 2020-01-01 09:21 | Outpatient (CLI) | payer MEDICARE, SELFPAY ==
[2020-01-01 10:50] LABS: Add Manual Diff / Slide Review NO; Basophils Absolute Auto 100 /uL (0-100); Basophils Percent Auto 0.6 % (0-2); Eosinophils Absolute Auto 200 /uL (0-450); Eosinophils Percent Auto 1.9 % (2-4); Hematocrit 35.6 % (36-46); Lymphocytes Absolute Auto 1300 /uL (1100-4500); Lymphocytes Percent Auto 16.6 % (25-40); Mean Corpuscular HGB Conc 33.7 % (30-36); Mean Corpuscular Hemoglobin 32.4 PG (26-34); Monocytes Absolute Auto 700 /uL (0-900); Monocytes Percent Auto 9.1 % (3-14); Neutrophils Absolute Auto 5800 /uL (1500-7000); Neutrophils Percent Auto 71.8 % (50-75); Platelet Count 187 X10^3/uL (150-400); Red Blood Cell Count 3.71 X10^6/uL (4.0-5.2); Red Cell Distribution Width 13.5 % (11.6-14.8)
[2020-01-01 10:58] LABS: HEMOLYSIS < 15 (0-50); Iron 100 ug/dL (37-170)
[2020-01-01 11:11] LABS: Percent Iron Saturation 39 % (15-50); Total Iron Binding Capacity 255 ug/dL (265-497); Transferrin 209 mg/dL (206-381)
[2020-01-01 11:33] LABS: Ferritin 76 ng/mL (11-264)
== END ==
PROVIDERS: PCP Family Medicine; Referring Provider Family Medicine; Visit Provider Family Medicine
DX: D64.9 Anemia, unspecified (principal)
CPT/HCPCS: 36415; 82728; 83540; 83550; 85025

== ENCOUNTER → 2020-02-18 10:49 | Outpatient (CLI) | payer MEDICARE, SELFPAY ==
[2020-02-18 12:25] LABS: COVID19 -Nasal RAPID Negative (Negative)
== END ==
PROVIDERS: PCP Family Medicine; Visit Provider Physical Medicine & Rehabilitation
DX: Z11.59 Encounter for screening for other viral diseases (principal); Z01.812 Encounter for preprocedural laboratory examination
CPT/HCPCS: 87635; C9803

== ENCOUNTER 2020-02-20 12:47 | Outpatient (CLI) | payer MEDICARE, SELFPAY ==
[2020-02-20] VITALS (10 sets, daily range): BP systolic 96–159; BP diastolic 53–79; PULSE 61–84; RESP 18–25; TEMP 36.6; O2SAT 96–100
--- NOTE | 2020-02-20 12:48 | DI.RAD.S_ITS ---
PROCEDURE: PAIN L/S TRANSFORAMINAL INJECT INDICATIONS: SPONDYLOSIS COMPARISON: [facility], XA, PAIN C/T FACET INJ/BLK 1ST L, 12/17/2019, 11:02. FINDINGS: Fluoroscopic spot filming was performed to verify placement of a spinal needle at the L4-L5 level, as labeled on the films. Appropriate location of the needle tip was confirmed by injection of iodinated contrast. IMPRESSION: Intraprocedural examination within normal limits. Dictated by: Panfilo Arias M.D. on 02/20/2020 at 16:21 Approved by: Panfilo Arias M.D. on 02/20/2020 at 16:22
[2020-02-20] MEDS: IOPAMIDOL 15 ML VIAL 3 ML INJ (13:40)
[2020-02-20] MEDS: BETAMETHASONE 30 MG/5 ML MDV 6 MG INJ (13:41)
[2020-02-20] MEDS: DEXAMETHASONE 10 MG/ML VIAL 20 MG INJ (13:41)
[2020-02-20] MEDS: BUPIVACAINE 0.25% (PF) VIAL 2 ML INJ (13:41)
[2020-02-20] MEDS: MIDAZOLAM 5 MG/5 ML VIAL IV (13:47)
--- NOTE | 2020-02-20 14:06 | P.PCN_ITS ---
Date/Time/Diagnoses Date of procedure: 02/20/20 Time of procedure: 14:06 Pre-procedure diagnosis: 1. FORAMINAL STENOSIS WITH LE SYMPTOMS Post-procedure diagnosis: same Procedure Notes Procedure: 1. FLUOROSCOPICALLY GUIDED CONTRAST CONTROLLED TRANSFORAMINAL EPIDURAL STEROID INJECTION - LEFT L4/5 Indications: Aida is referred by Dr. Arora for treatment of Foraminal Stenosis with Left LE Symptoms Physician: Shayne Jones Total Fluoroscopy time (seconds): 18 Total sedation minutes: 22 Complications: none Procedure in detail & Post-procedure care: FINDINGS Foraminal Nerve Root Compression secondary to disc disease and facet hypertrophy DESCRIPTION OF PROCEDURE Following review of allergy and review of potential side effects and complications, including, but not necessarily limited to, infection, allergic reaction, local tissue breakdown, stroke, temporary or permanent nerve injury, paralysis, and possible , the patient indicated that the patient understood and agreed to proceed. An informed consent document was signed by the patient, witnessed by a nurse, and placed in the patient's chart. Additionally, other treatment options including medications, modalities, and physical therapy were reviewed with the patient. After review of previous anaesthesic history and IV conscious sedation the patient was deemed safe to proceed with today?s procedure with IV conscious sedation as ASA class II designation. Safety time-out was performed to confirm patient ID, procedure to be performed and site of procedure. IV sedation was accomplished with a combination of 3mg of Versed administered by the RN after DO order, titrated to patient comfort during the course of the procedure while the patient remained responsive to all verbal commands In the prone position following sterile prep and drape of the lumbar region, the left L4/5 posterior neuroforamen was identified fluoroscopically. The skin was anesthetized via a 25-gauge 1.5-inch needle with 1% lidocaine solution. At this point, a 25-gauge 3.5-inch spinal needle was atraumatically introduced and advanced under fluoroscopic guidance through the posterior left L4/5 neuroforamen to approximately the anterior aspect of the canal. Depth was confirmed on lateral view. Following negative aspiration, injection of approximately 1.5 cc of Isovue 200 under live fluoroscopy in the AP view confirmed excellent flow along the nerve root, into the epidural space without vascular or intrathecal uptake observed Radiological data, including multiple fluoroscopic views of the lumbosacral spine, reveal a spinal needle at the left L4/5 posterior neuroforamen. Subsequent views show flow of contrast material flowing superiorly and inferiorly along the nerve root confirming epidural flow. Subsequently, a test dose of 1.5 cc of 1% lidocaine solution was administered and patient was observed for two minutes for signs or symptoms of complications, including abdominal pain, shortness of breath, bilateral upper or lower extremity weakness, nausea and vomiting, prior to steroid injection. At this point, a total of 3cc or 20mg of dexamethasone and 6mg of betamethasone was injected without incident. The procedure tolerated the procedure well without signs or symptoms of complications prior to transfer to the recovery area continued monitoring without incident. The patient was then transferred to the recovery area where they were observed for an appropriate time after the injection. The patient reported a VAS score of 7 prior to the procedure and a post- procedure VAS of 0. POST OP INSTRUCTIONS The patient was provided a Pain Log to continue to record their response to the target-specific procedure prior to follow-up visit with their referring physician. Additionally, specific post-injection care instructions and a contact number to our office were provided if concerns arise regarding possible complications associated with the procedure are suspected.
--- NOTE | 2020-02-20 14:17 | DI.RAD.S_ITS ---
PROCEDURE: XR LUMBAR SPINE MIN 4V INDICATIONS: LBP with left LE radic, 6 non rib vert?, slip @L5/L6? TECHNIQUE: 5 views of the lumbar spine were acquired, including flexion and extension views. COMPARISON: [facility], CT, KIDNEY/ URETER/BLADDER, 06/01/2011, 9:32. [facility] [place] [place], CR, XR LUMBAR SPINE WITH OLBIQUES PLUS FLEXION EXTENSION, 12/14/2017, 10:27. [facility], MR, MR LUMBAR SPINE WO CON, 08/17/2017, 13:55. FINDINGS: Bones: This patient has transitional lumbar anatomy. For the purposes of this examination, the level with the last well-developed pair of ribs is considered to be T12. By this numbering scheme, there are 6 lumbar-type vertebral bodies. Please note that this numbering scheme differs by 1 level from the numbering scheme on the report of the lumbar spine MRI 08/17/2017. Grade 1/2 anterolisthesis is seen at the L6-S1 level. Mild levoconvex scoliotic curvature is noted. No displaced fractures are seen. No suspicious lytic or blastic lesions are seen. There is moderate to severe disc space narrowing seen at L3-L4, with at least moderate disc space narrowing at L4-L5. Moderate to severe disc space narrowing is seen at L5-L6. Lower lumbar spine facet arthropathy is seen. Soft tissues: Overlying bowel gas pattern is normal. No suspicious soft tissue calcifications. Cholecystectomy clips are seen. Flexion/extension: There is limited range of motion, without abnormal subluxation. IMPRESSION: Transitional lumbar anatomy, with 6 lumbar type vertebral bodies. Grade 1 L6-S1 anterolisthesis seen. Limited range of motion, without abnormal subluxation. Degenerative changes are seen, which are overall most prominent at L3-L4 and L5-L6. Dictated by: Panfilo Arias M.D. on 02/20/2020 at 14:23 Approved by: Panfilo Arias M.D. on 02/20/2020 at 14:29
== END 2020-02-20 14:22 | disposition home or self-care (01) ==
LOC: RAD 12:48
PROVIDERS: PCP Family Medicine; Referring Provider Physical Medicine & Rehabilitation; Visit Provider Physical Medicine & Rehabilitation
DX: M47.817 Spondylosis without myelopathy or radiculopathy, lumbosacral region (principal); M54.16 Radiculopathy, lumbar region
CPT/HCPCS: 64483; 72110; 99152; J0702; J1100; J2250; J3010

== ENCOUNTER → 2020-04-14 12:22 | Outpatient (CLI) | payer MEDICARE, SELFPAY ==
[2020-04-14 14:54] LABS: COVID19 -Nasal RAPID Negative (Negative)
== END ==
PROVIDERS: PCP Family Medicine; Visit Provider Physical Medicine & Rehabilitation
DX: Z20.822 Contact with and (suspected) exposure to COVID-19 (principal)
CPT/HCPCS: 87635

== ENCOUNTER → 2020-04-14 13:02 | Outpatient (CLI) | payer MEDICARE, SELFPAY ==
[2020-04-14 15:24] LABS: Add Manual Diff / Slide Review NO; Basophils Absolute Auto 100 /uL (0-100); Basophils Percent Auto 1.1 % (0-2); Eosinophils Absolute Auto 200 /uL (0-450); Eosinophils Percent Auto 2.4 % (2-4); Hematocrit 36.4 % (36-46); Hemoglobin 11.9 g/dL (12.0-16.0); Lymphocytes Absolute Auto 1500 /uL (1100-4500); Lymphocytes Percent Auto 23.1 % (25-40); Mean Corpuscular HGB Conc 32.8 % (30-36); Mean Corpuscular Hemoglobin 31.8 PG (26-34); Monocytes Absolute Auto 800 /uL (0-900); Monocytes Percent Auto 11.9 % (3-14); Neutrophils Absolute Auto 4100 /uL (1500-7000); Neutrophils Percent Auto 61.5 % (50-75); Platelet Count 252 X10^3/uL (150-400); Red Blood Cell Count 3.75 X10^6/uL (4.0-5.2); Red Cell Distribution Width 13.2 % (11.6-14.8); White Blood Cell Count 6.7 X10^3/uL (4.5-11.0)
[2020-04-14 15:26] LABS: Alanine Aminotransferase 18 IU/L (<35); Albumin 4.3 g/dL (3.5-5.0); Albumin Globulin Ratio 1.5 (1.0-2.8); Alkaline Phosphatase 97 U/L (38-126); Aspartate Aminotransferase 32 IU/L (14-36); Bilirubin Total 0.2 mg/dL (0.2-1.3); Blood Urea Nitrogen 27 mg/dL (7-17); Calcium 9.7 mg/dL (8.4-10.2); Carbon Dioxide 30 mmol/L (22-32); Chloride 101 mmol/L (98-107); Estimated Glomerular Filt Rate 41.8 mL/min (>60); Globulin 2.8 g/dL (1.7-4.1); Glucose 89 mg/dL (80-110); HEMOLYSIS < 15 (0-50); Potassium 4.7 mmol/L (3.4-5.1); Sodium 135 mmol/L (137-145); Total Protein 7.1 g/dL (6.3-8.2)
[2020-04-14 15:50] LABS: Free T3, Triiodothyronine Free 3.76 pg/mL (2.77-5.27)
[2020-04-14 16:03] LABS: Thyroid Stimulating Hormone 0.084 uIU/mL (0.47-4.68)
== END ==
PROVIDERS: PCP Family Medicine; Referring Provider Family Medicine; Visit Provider Family Medicine
DX: Z01.812 Encounter for preprocedural laboratory examination (principal); Z20.822 Contact with and (suspected) exposure to COVID-19; I10 Essential (primary) hypertension; E03.8 Other specified hypothyroidism; E06.3 Autoimmune thyroiditis; D64.9 Anemia, unspecified
CPT/HCPCS: 36415; 80053; 84439; 84443; 84481; 85025; 87635; C9803

== ENCOUNTER 2020-04-16 10:06 | Outpatient (CLI) | payer MEDICARE, SELFPAY ==
[2020-04-16] VITALS (10 sets, daily range): BP systolic 108–170; BP diastolic 60–86; PULSE 76–92; RESP 15–20; TEMP 36.4; O2SAT 95–99
--- NOTE | 2020-04-16 10:08 | DI.RAD.S_ITS ---
PROCEDURE: PAIN L INTERLAMINAR/CAUDAL INJ INDICATIONS: SPONDYLOSIS COMPARISON: [facility], CR, XR LUMBAR SPINE MIN 4V, 02/20/2020, 14:26. FINDINGS: Fluoroscopic spot filming was performed to verify placement of a spinal needle at the L5-S1 level, as labeled on the films. Appropriate location of the needle tip was confirmed by injection of iodinated contrast. IMPRESSION: No significant intraprocedural abnormality. Dictated by: Panfilo Arias M.D. on 04/16/2020 at 11:54 Approved by: Panfilo Arias M.D. on 04/16/2020 at 11:55
[2020-04-16] MEDS: MIDAZOLAM 5 MG/5 ML VIAL IV (11:04)
[2020-04-16] MEDS: IOPAMIDOL 15 ML VIAL 3 ML INJ (11:11)
[2020-04-16] MEDS: BUPIVACAINE 0.25% (PF) VIAL 2 ML INJ (11:11)
[2020-04-16] MEDS: BETAMETHASONE 30 MG/5 ML MDV 6 MG INJ (11:12)
[2020-04-16] MEDS: DEXAMETHASONE 10 MG/ML VIAL 20 MG INJ (11:12)
--- NOTE | 2020-04-16 11:17 | PM.PROC.IR.1 ---
Date/Time/Diagnoses Date of procedure: 04/16/20 Time of procedure: 11:17 Pre-procedure diagnosis: 1. HNP WITH RADICULAR FEATURES, 2. MULTILEVEL CENTRAL STENOSIS, Post-procedure diagnosis: same Procedure Notes Procedure: 1. FLUOROSCOPICALLY GUIDED CONTRAST CONTROLLED INTERLAMINAR EPIDURAL STEROID INJECTION - L5/S1 Indications: Aida is referred by Dr. Arora for treatment of Bilateral Foraminal Stenosis L>R LE symptoms. Physician: Shayne Jones Total Fluoroscopy time (seconds): 7 Total sedation minutes: 11 Complications: none Procedure in detail & Post-procedure care: FINDINGS Multilevel Central Spinal Stenosis with Nerve Root Compression DESCRIPTION OF PROCEDURE Fluoroscopically guided, contrast-controlled L5/S1 translaminar epidural steroid injection. Following review of allergy and review of potential side effects and complications, including, but not necessarily limited to, infection, allergic reaction, local tissue breakdown, temporary as well as permanent nerve injury, paralysis, stroke and possible , the patient indicated that the patient understood and agreed to proceed. An informed consent document was signed by the patient, witnessed by a nurse, and placed in the patient's chart. Additionally, other treatment options including modalities, medications, and physical therapy were reviewed with the patient. After review of previous anaesthesic history and IV conscious sedation the patient was deemed safe to proceed with today?s procedure with IV conscious sedation as ASA class II designation. Safety time-out was performed to confirm patient ID, procedure to be performed and site of procedure. IV sedation was accomplished with a combination of 2mg of Versed administered by the RN after DO order, titrated to patient comfort during the course of the procedure while the patient remained responsive to all verbal commands. In the prone position, following sterile prep and drape of the lumbar region, the L5/S1 translaminar space was identified fluoroscopically. The skin was anesthetized via a 25-gauge, 1.5-inch needle with 1% lidocaine solution. At this point, a 22-gauge short bevel spinal needle was atraumatically introduced and advanced under fluoroscopic guidance into the region of the L5/S1 translaminar space. Depth was confirmed on lateral view. Radiological data, including multiple fluoroscopic views of the lumbar spine, reveal a spinal needle at the L5/S1 translaminar space. Lateral views then show placement of the needle in the epidural space. Subsequent views show contrast material flowing superiorly and inferiorly in the epidural space. No vascular or intrathecal uptake is observed. At this point, using loss of resistance technique with saline and air, the epidural space was entered. This was confirmed following negative aspiration with injection of approximately 1.5cc of Isovue 200, showing excellent epidural flow without vascular or intrathecal uptake. At this point, 1cc of 1% lidocaine solution combined with 3cc or 20mg of dexamethasone and 6mg of betamethasone was injected without incident. The patent tolerated the procedure without signs of symptoms of complications prior to transfer to the recovery area for further monitoring. The patient was then transferred to the recovery area where they were observed for an appropriate period of time after the injection. The patient reported a VAS score of 6 prior to the procedure and a post-procedure VAS of 0. POST OP INSTRUCTIONS The patient was provided a Pain Log to continue to record their response to the target-specific procedure prior to follow-up visit with their referring physician. Additionally, specific post-injection care instructions and a contact number to our office were provided if concerns arise regarding possible complications associated with the procedure are suspected.
--- NOTE | 2020-04-16 16:16 | PC.NURSE ---
Pt incontinent x1 during procedure. Changed clothes with RN assistance. upset from being embarrassed Reassurance given. Pt stable and had no questions prior to DC. Mentioned stopping at [employer] on the way home. DC instructions reiterated to patient that she should relax, not do anything strenuous, remain in the car on the way home and encouraged her to not ambulate in large stores this afternoon.
== END 2020-04-16 11:55 | disposition home or self-care (01) ==
LOC: RAD 10:08
PROVIDERS: PCP Family Medicine; Referring Provider Physical Medicine & Rehabilitation; Visit Provider Physical Medicine & Rehabilitation
DX: M51.17 Intervertebral disc disorders with radiculopathy, lumbosacral region (principal); M48.07 Spinal stenosis, lumbosacral region
CPT/HCPCS: 62323; 99152; J0702; J1100; J2250; J3010

== ENCOUNTER → 2020-05-22 11:11 | Outpatient (CLI) | payer MEDICARE, SELFPAY ==
--- NOTE | 2020-05-22 11:13 | DI.RAD.S_ITS ---
7PROCEDURE: XR KNEE LT 3V INDICATIONS: knee djd TECHNIQUE: 3 views of the knee were acquired. COMPARISON: None. FINDINGS: Bones: No fractures or dislocations. No suspicious bony lesions. Mild medial and patellofemoral compartment osteoarthritis. Soft tissues: No joint effusion. No suspicious soft tissue calcifications. IMPRESSION: Mild medial and patellofemoral compartment osteoarthritis. Dictated by: Saira Samuel MD, PhD on 05/22/2020 at 16:25 Approved by: Saira Samuel MD, PhD on 05/22/2020 at 16:26
--- NOTE | 2020-05-22 11:13 | DI.RAD.S_ITS ---
PROCEDURE: XR KNEE RT 3V INDICATIONS: knee djd TECHNIQUE: 3 views of the knee were acquired. COMPARISON: None. FINDINGS: Bones: No fractures or dislocations. No suspicious bony lesions. Mild tricompartmental osteoarthritis. Soft tissues: No joint effusion. Chondrocalcinosis.. IMPRESSION: 1. Mild tricompartmental osteoarthritis. 2. Chondrocalcinosis. Finding is nonspecific but can be related to CPPD, hemochromatosis and hyperparathyroidism. Recommend correlation with clinical data Dictated by: Saira Samuel MD, PhD on 05/22/2020 at 16:26 Approved by: Saira Samuel MD, PhD on 05/22/2020 at 16:28
== END ==
PROVIDERS: PCP Family Medicine; Referring Provider Physical Medicine & Rehabilitation; Visit Provider Physical Medicine & Rehabilitation
DX: M17.0 Bilateral primary osteoarthritis of knee (principal); M11.261 Other chondrocalcinosis, right knee; M54.16 Radiculopathy, lumbar region; M51.9 Unspecified thoracic, thoracolumbar and lumbosacral intervertebral disc disorder; M47.814 Spondylosis without myelopathy or radiculopathy, thoracic region
CPT/HCPCS: 73562; 99214

== ENCOUNTER → 2020-06-26 08:48 | Outpatient (CLI) | payer MEDICARE, SELFPAY ==
--- NOTE | 2020-07-01 10:23 | PM.PFT.1 ---
Pulmonary Function Test Referral & Results Date Patient Seen: 06/26/20 Requesting provider: Ellis Marie Results: The spirometry demonstrates an FVC of 2.06 L which is 102% of predicted. The FEV1 was measured at 1.66 L which is 112% of predicted. The FEV1/FVC ratio was 80 which is 109% of predicted. Interpretation: This study demonstrates normal forced spirometry
== END ==
PROVIDERS: PCP Family Medicine; Referring Provider Internal Medicine Pulmonary Disease; Visit Provider Internal Medicine Pulmonary Disease
DX: R06.02 Shortness of breath (principal)
CPT/HCPCS: 94010

== ENCOUNTER → 2020-09-07 09:46 | Outpatient (CLI) | payer MEDICARE, SELFPAY ==
[2020-09-07 10:36] LABS: Add Manual Diff / Slide Review NO; Basophils Absolute Auto 100 /uL (0-100); Basophils Percent Auto 1.1 % (0-2); Eosinophils Absolute Auto 200 /uL (0-450); Eosinophils Percent Auto 3.4 % (2-4); Hematocrit 37.4 % (36-46); Hemoglobin 12.5 g/dL (12.0-16.0); Lymphocytes Absolute Auto 1300 /uL (1100-4500); Lymphocytes Percent Auto 21.9 % (25-40); Mean Corpuscular HGB Conc 33.5 % (30-36); Mean Corpuscular Hemoglobin 32.3 PG (26-34); Mean Corpuscular Volume 96.6 fL (80-100); Monocytes Absolute Auto 700 /uL (0-900); Monocytes Percent Auto 11.3 % (3-14); Neutrophils Absolute Auto 3700 /uL (1500-7000); Neutrophils Percent Auto 62.3 % (50-75); Platelet Count 204 X10^3/uL (150-400); Red Blood Cell Count 3.87 X10^6/uL (4.0-5.2); Red Cell Distribution Width 13.5 % (11.6-14.8)
[2020-09-07 10:48] LABS: Alanine Aminotransferase 18 IU/L (<35); Albumin 4.2 g/dL (3.5-5.0); Albumin Globulin Ratio 1.4 (1.0-2.8); Alkaline Phosphatase 67 U/L (38-126); Aspartate Aminotransferase 31 IU/L (14-36); BUN Creatinine Ratio 16.4 (6-22); Bilirubin Total 0.4 mg/dL (0.2-1.3); Blood Urea Nitrogen 20 mg/dL (7-17); Carbon Dioxide 25 mmol/L (22-32); Chloride 102 mmol/L (98-107); Estimated Glomerular Filt Rate 42.1 mL/min (>60); Globulin 3.1 g/dL (1.7-4.1); Glucose 112 mg/dL (80-110); HEMOLYSIS < 15 (0-50); Potassium 4.4 mmol/L (3.4-5.1); Sodium 136 mmol/L (137-145); Total Protein 7.3 g/dL (6.3-8.2)
[2020-09-07 11:07] LABS: Ferritin 85 ng/mL (11-264)
[2020-09-07 11:15] LABS: Free T3, Triiodothyronine Free 3.68 pg/mL (2.77-5.27); Free T4, Direct Thyroxine 1.67 ng/dL (0.78-2.19)
[2020-09-07 11:29] LABS: Thyroid Stimulating Hormone < 0.015 uIU/mL (0.47-4.68)
[2020-09-07 11:38] LABS: Folate > 20.0 ng/mL (2.76-20.0); Vitamin B12 > 1000 pg/mL (239-931)
== END ==
PROVIDERS: PCP Family Medicine; Referring Provider Family Medicine; Visit Provider Family Medicine
DX: D64.9 Anemia, unspecified (principal); E06.5 Other chronic thyroiditis; N18.31 Chronic kidney disease, stage 3a
CPT/HCPCS: 36415; 80053; 82607; 82728; 82746; 84439; 84443; 84481; 85025

== ENCOUNTER → 2020-12-10 10:46 | Outpatient (CLI) | payer MEDICARE, SELFPAY ==
--- NOTE | 2020-12-10 | DI.RAD.S_ITS ---
PROCEDURE: XR SHOULDER RT MIN 2V INDICATIONS: right shoulder pain TECHNIQUE: 4 views of the shoulder were acquired. COMPARISON: [facility], CR, XR SHOULDER LT MIN 2V, 03/05/2018, 12:58. FINDINGS: Bones: No fractures or dislocations. No suspicious bony lesions. Visualized ribs appear intact. Glenohumeral joint space narrowing. Acromioclavicular joint space narrowing and small marginal osteophyte noted. Soft tissues: No suspicious soft tissue calcifications. IMPRESSION: Moderate osteoarthritic changes without fracture or malalignment. Approved by: Miguel Calderón M.D. on 12/10/2020 at 15:34
--- NOTE | 2020-12-10 | DI.RAD.S_ITS ---
PROCEDURE: XR SHOULDER LT MIN 2V INDICATIONS: left shoulder pain TECHNIQUE: 3 views of the shoulder were acquired. COMPARISON: [facility], , XR SHOULDER LT MIN 2V, 03/05/2018, 12:58. FINDINGS: Bones: No fractures or dislocations. No suspicious bony lesions. Visualized ribs appear intact. Glenohumeral joint space narrowing Soft tissues: No suspicious soft tissue calcifications. IMPRESSION: Osteoarthritic changes without fracture or malalignment Approved by: Miguel Calderón M.D. on 12/10/2020 at 15:33
== END ==
PROVIDERS: PCP Family Medicine; Referring Provider Family Medicine; Visit Provider Family Medicine
DX: M25.511 Pain in right shoulder (principal); M25.512 Pain in left shoulder
CPT/HCPCS: 73030

== ENCOUNTER 2021-02-17 09:00 | Outpatient (RCR) | payer MEDICARE, SELFPAY ==
--- NOTE | 2020-12-23 14:32 | PT.OIE ---
Current Diagnoses Mixed incontinence (12/23/20) Past Medical History (Last Updated 09/28/20 @ 21:32 by Dominguez Moyer DO) Allergy (2009) Alopecia (2017) Anxiety (2015) Arthritis of facet joint of cervical spine Bilateral shoulder pain Cardiac arrhythmia (2009) Carpal tunnel syndrome (2013) Cataracts, bilateral (Unknown) Chickenpox (Unknown) Chickenpox Chronic back pain (2001) Clotting disorder (04/2011) Colon polyps (2014) Degenerative joint disease of knee Diverticulitis (2014) DVT (deep venous thrombosis) (~2011) Dyspepsia Factor V Leiden (~2011) Fibromyalgia (2007) Foot pain (2014) Frequent UTI (2011) GERD (gastroesophageal reflux disease) (2014) GI bleeding (~2014) Glaucoma (Unknown) History of hemorrhoids (Unknown) History of recurrent ear infection (Unknown) History of tinnitus (Unknown) Hypothyroidism (2006) Kidney disease (2006) Knee pain (2015) Left knee DJD Lumbar radiculopathy Lumbar spine pain LVH (left ventricular hypertrophy) Measles (194) Measles (~1947) Migraines (2006) Mumps (Unknown) Mumps Nonrheumatic aortic (valve) insufficiency Osteoarthritis (~2006) Osteopenia (2014) Palpitations Pancreatitis (~2005) Peripheral neuropathy (2012) Postmenopausal bleeding (09/26/14) Pulmonary hypertension (2006) Recurrent sinusitis (Unknown) Shoulder pain Sleep apnea (2009) Urinary incontinence (2009) Vertigo (Unknown) Vision abnormalities Past Surgical History (Last Reviewed 09/07/20 @ 11:54 by Shayne Jones DO) Anesthesia Status post delivery Status post dilation and curettage (10/26/15) Status post endoscopic retrograde cholangiopancreatography (~2005) Status post hysteroscopy (10/26/15) Visit Care Team Role Provider Type Terrence Arora MD Family Provider Physician Primary Care Provider Specialty: Family Practice Address: [facility] [address], [place], [address] Email: [email or web address] Lorin Bradley MD Attending Provider Non-Staff Referring Provider Specialty: Urology Address: [address] [place] [address], [id number] Email: Physical Therapy Initial Evaluation PT-OP-A Visit Information Start: 12/04/20 13:13 Freq: Status: Active Protocol: Document 12/23/20 13:00 AMB (Rec: 12/23/20 14:31 AMB [email or web address]) Out-Patient Physical Therapy Visit Information Visit Information Visit Type Initial Evaluation Visit Start Time 13:00 Visit Stop Time 13:45 Total Visit Minutes 45 Visit Number 1 PT-OP-B Current Condition Start: 12/04/20 13:13 Freq: Status: Active Protocol: Document 12/23/20 13:00 AMB (Rec: 12/23/20 13:23 AMB [id number]) Current Condition History of Current Condition Onset Date 2004 Current Complaints mixed urinary incontinence. History of Current Condition Does have stage III kidney disease, used to have chronic UTIs. Going to the bathroom every 45 minutes, 2-3x at night. Stress incontinence and urinary frequency. 3 C- sections. Menopause at age 52. Is having hot flashes and sweats. Thinks she urinates for 3-4 seconds during the day . Constipation in April but now better regulated. PT-OP-C Subjective Start: 12/04/20 13:13 Freq: Status: Active Protocol: Document 12/23/20 13:00 AMB (Rec: 12/23/20 14:31 AMB [email or web address]) Patient Questionnaires Pelvic Pain and Urgency/Frequency Patient Symptom Scale Pelvic Pain Score 13 OP-PT Pain Assessment Comments Pain Comments LBP, neck pain, knee pain, pt reports history of pain with pelvic exams PT-OP-I Pelvic Floor Start: 12/04/20 13:13 Freq: Status: Active Protocol: Document 12/23/20 13:00 AMB (Rec: 12/23/20 14:31 AMB [email or web address]) Pelvic Floor Assessment Urine Pelvic Floor Surgery Yes: C-sectionx3 Leakage Size Large Leakage Cause Cough,Lifting,Sneeze,Urge Leaks Per Day 6 Voiding Frequency every 45 min Nocturia 3 Pads Used In 24 Hours 5 Urine Pad Type Maxi Pad Bowel Other Bowel Symptoms History of constipation about 9 months ago, currently manages with metamucil Bowel Movement Frequency once aday Pelvic Clock Pelvic Clock 12-3 Guarding,Tenderness,Tightness Pelvic Clock 3-6 Guarding,Tenderness,Tightness Pelvic Clock 6-9 Guarding,Tenderness,Tightness Pelvic Clock 9-12 Guarding,Tenderness,Tightness Prolapse Cystocele Grade 2 Perineal Descent Resting Present Bearing Present Contraction Ability Voluntary Contraction Weak Voluntary Relaxation Weak Manual Muscle Testing Right 1 Manual Muscle Testing Anterior 1 Manual Muscle Testing Posterior 2 Muscle Endurance (Seconds) 3 Number of Quick Contractions In 10 3 Seconds Comments Pelvic Floor Comments Pt tends to bulge out with her abdominals PT-OP-T Assessment and Plan Start: 12/04/20 13:13 Freq: Status: Active Protocol: Document 12/23/20 13:00 AMB (Rec: 12/23/20 14:31 AMB [email or web address]) Physical Therapy Assessment Rehab Potential Rehabilitation Potential Good Evaluation Complexity Number of Personal Factors/Comorbidities 1-2 Number of Body Systems Impaired 4 or More Clinical Presentation at Evaluation Stable Impairments Impairments Functional Activities, Functional Mobility,Pain, Strength Goals Two Impairment urgency Short Term Goal (STG) Aida will use urge management techniques to increase her voids from 45 minutes to 1.5 hours. STG Duration 4 weeks Nursing Home Goal (LTG) Aida will use urge management techniques to decrease from 3x nocturia to 2x nocturia. LTG Duration 8 weeks One Impairment weakness Short Term Goal (STG) Aida will contract her pelvic floor in standing for 5 seconds. STG Duration 4 weeks Play Therapist Goal (LTG) Aida will contract her pelvic floor while moving from sit to stand to decrease her stress incontinence. LTG Duration 8 weeks Assessment Summary Assessment Aida attends physical therapy with a long history of mixed incontinence. She states she has been doing kegels for a long time, however when the physical exam is performed she was over utilizing her abdominal muscles and was quite weak in her pelvic floor muscles both superficial and deep. She will benefit from physical therapy to instruct her in appropriate pelvic floor strengthening and urge reduction techniques. Physical Therapy Plan Frequency and Duration Frequency of Treatment 1x/Week Duration of Treatment 10 weeks Plan of Care Start Date 12/23/20 Plan of Care End Date 03/03/21 Therapeutic Interventions Therapeutic Interventions Home Exercise Program,Manual Therapy,Neuromuscular Re- education,Self-Care/Home Management,Soft Tissue Mobilization,Therapeutic Activities,Therapeutic Exercises Modalities Biofeedback,Electric Stimulation Next Visit Focus/Plan Next Note Type Treatment Note Next Visit Plan start with sEMG
--- NOTE | 2020-12-23 14:33 | PT.OPPOC ---
Physical, Occupational & Speech Therapy At [facility] Current Diagnoses Mixed incontinence (12/23/20) Visit Care Team Role Provider Type Terrence Arora MD Family Provider Physician Primary Care Provider Specialty: Family Practice Address: [address], [place], [address] Email: [email or web address] Lorin Bradley MD Attending Provider Non-Staff Referring Provider Specialty: Urology [facility] [place], [address] Email: Plan Of Care PT-OP-T Assessment and Plan Start: 12/04/20 13:13 Freq: Status: Active Protocol: Document 12/23/20 13:00 AMB (Rec: 12/23/20 14:31 AMB [email or web address]) Physical Therapy Assessment Rehab Potential Rehabilitation Potential Good Evaluation Complexity Number of Personal Factors/Comorbidities 1-2 Number of Body Systems Impaired 4 or More Clinical Presentation at Evaluation Stable Impairments Impairments Functional Activities, Functional Mobility,Pain, Strength Goals Two Impairment urgency Short Term Goal (STG) Aida will use urge management techniques to increase her voids from 45 minutes to 1.5 hours. STG Duration 4 weeks Team Physician Goal (LTG) Aida will use urge management techniques to decrease from 3x nocturia to 2x nocturia. LTG Duration 8 weeks One Impairment weakness Short Term Goal (STG) Aida will contract her pelvic floor in standing for 5 seconds. STG Duration 4 weeks Team Physician Goal (LTG) Aida will contract her pelvic floor while moving from sit to stand to decrease her stress incontinence. LTG Duration 8 weeks Assessment Summary Assessment Aida attends physical therapy with a long history of mixed incontinence. She states she has been doing kegels for a long time, however when the physical exam is performed she was over utilizing her abdominal muscles and was quite weak in her pelvic floor muscles both superficial and deep. She will benefit from physical therapy to instruct her in appropriate pelvic floor strengthening and urge reduction techniques. Physical Therapy Plan Frequency and Duration Frequency of Treatment 1x/Week Duration of Treatment 10 weeks Plan of Care Start Date 12/23/20 Plan of Care End Date 03/03/21 Therapeutic Interventions Therapeutic Interventions Home Exercise Program,Manual Therapy,Neuromuscular Re- education,Self-Care/Home Management,Soft Tissue Mobilization,Therapeutic Activities,Therapeutic Exercises Modalities Biofeedback,Electric Stimulation Next Visit Focus/Plan Next Note Type Treatment Note Next Visit Plan start with sEMG Plan of Care Dates Plan of Care Start Date 12/23/20 Plan of Care End Date 03/03/21 Electronically Signed by: Raysa Bentley, PT 12/23/20 [id number] Please Sign and Return: I have reviewed this Plan of Care and certify that the skilled therapy services above are required to meet the patient?s needs. Physician Signature Date Printed Name and Credentials Clinical Instructor Signature Printed Name and Credentials
--- NOTE | 2021-01-21 12:41 | PT.OTN ---
Current Diagnoses Mixed incontinence (01/21/21) Physical Therapy Treatment Note PT-OP-A Visit Information Start: 12/04/20 13:13 Freq: Status: Active Protocol: Document 01/21/21 09:45 AMB (Rec: 01/21/21 10:30 AMB [id number]) Out-Patient Physical Therapy Visit Information Visit Information Visit Type Treatment Note Visit Start Time 09:45 Visit Stop Time 10:30 Total Visit Minutes 45 Visit Number 2 PT-OP-B Current Condition Start: 12/04/20 13:13 Freq: Status: Active Protocol: Document 12/23/20 13:00 AMB (Rec: 12/23/20 13:23 AMB [id number]) Current Condition History of Current Condition Onset Date 2004 Current Complaints mixed urinary incontinence. History of Current Condition Does have stage III kidney disease, used to have chronic UTIs. Going to the bathroom every 45 minutes, 2-3x at night. Stress incontinence and urinary frequency. 3 C- sections. Menopause at age 52. Is having hot flashes and sweats. Thinks she urinates for 3-4 seconds during the day . Constipation in April but now better regulated. PT-OP-C Subjective Start: 12/04/20 13:13 Freq: Status: Active Protocol: Document 01/21/21 09:45 AMB (Rec: 01/21/21 10:30 AMB [id number]) OP-PT Subjective Patient Comments Patient Comments Pt reports family drama this last week and so it has been difficult for her to focus on her exercises, she is wondering if she should do the bladder botox or the bulking. PT-OP-I Pelvic Floor Start: 12/04/20 13:13 Freq: Status: Active Protocol: Document 12/23/20 13:00 AMB (Rec: 12/23/20 14:31 AMB [id number]) Pelvic Floor Assessment Urine Pelvic Floor Surgery Yes: C-sectionx3 Leakage Size Large Leakage Cause Cough,Lifting,Sneeze,Urge Leaks Per Day 6 Voiding Frequency every 45 min Nocturia 3 Pads Used In 24 Hours 5 Urine Pad Type Maxi Pad Bowel Other Bowel Symptoms History of constipation about 9 months ago, currently manages with metamucil Bowel Movement Frequency once aday Pelvic Clock Pelvic Clock 12-3 Guarding,Tenderness,Tightness Pelvic Clock 3-6 Guarding,Tenderness,Tightness Pelvic Clock 6-9 Guarding,Tenderness,Tightness Pelvic Clock 9-12 Guarding,Tenderness,Tightness Prolapse Cystocele Grade 2 Perineal Descent Resting Present Bearing Present Contraction Ability Voluntary Contraction Weak Voluntary Relaxation Weak Manual Muscle Testing Right 1 Manual Muscle Testing Anterior 1 Manual Muscle Testing Posterior 2 Muscle Endurance (Seconds) 3 Number of Quick Contractions In 10 3 Seconds Comments Pelvic Floor Comments Pt tends to bulge out with her abdominals PT-OP-Q Treatments Start: 12/04/20 13:13 Freq: Status: Active Protocol: Document 01/21/21 09:45 AMB (Rec: 01/21/21 10:30 AMB [id number]) Therapeutic Exercises Supine Exercises quick flicks/long holds Supine Exercise Name with bolsters Comments cues for breath Sitting Exercises 1 Sitting Exercise Name roll in Comments with cues for lift/breath PT-OP-T Assessment and Plan Start: 12/04/20 13:13 Freq: Status: Active Protocol: Document 01/21/21 09:45 AMB (Rec: 01/21/21 10:30 AMB [id number]) Physical Therapy Assessment Assessment Summary Assessment Aida was dissapointed that we were out of sEMG sensors today. Continued to educate on urge vs stress incontinence , reassured her that she could palpate her own pelvic floor to feel if she is prisca appropriately. Physical Therapy Plan Next Visit Focus/Plan Next Note Type Treatment Note Next Visit Plan start with sEMG
--- NOTE | 2021-02-04 14:25 | PT.OTN ---
Current Diagnoses Mixed incontinence (02/04/21) Physical Therapy Treatment Note PT-OP-A Visit Information Start: 12/04/20 13:13 Freq: Status: Active Protocol: Document 02/04/21 10:03 AMB (Rec: 02/04/21 11:02 AMB [id number]) Out-Patient Physical Therapy Visit Information Visit Information Visit Type Treatment Note Visit Start Time 09:45 Visit Stop Time 10:30 Total Visit Minutes 45 Visit Number 3 PT-OP-B Current Condition Start: 12/04/20 13:13 Freq: Status: Active Protocol: Document 12/23/20 13:00 AMB (Rec: 12/23/20 13:23 AMB [id number]) Current Condition History of Current Condition Onset Date 2004 Current Complaints mixed urinary incontinence. History of Current Condition Does have stage III kidney disease, used to have chronic UTIs. Going to the bathroom every 45 minutes, 2-3x at night. Stress incontinence and urinary frequency. 3 C- sections. Menopause at age 52. Is having hot flashes and sweats. Thinks she urinates for 3-4 seconds during the day . Constipation in April but now better regulated. PT-OP-C Subjective Start: 12/04/20 13:13 Freq: Status: Active Protocol: Document 02/04/21 10:03 AMB (Rec: 02/04/21 11:02 AMB [id number]) OP-PT Subjective Patient Comments Patient Comments Pt reports she is trying to do exercises 3x/day but at least is doing them 2x.day. PT-OP-I Pelvic Floor Start: 12/04/20 13:13 Freq: Status: Active Protocol: Document 12/23/20 13:00 AMB (Rec: 12/23/20 14:31 AMB [email or web address]) Pelvic Floor Assessment Urine Pelvic Floor Surgery Yes: C-sectionx3 Leakage Size Large Leakage Cause Cough,Lifting,Sneeze,Urge Leaks Per Day 6 Voiding Frequency every 45 min Nocturia 3 Pads Used In 24 Hours 5 Urine Pad Type Maxi Pad Bowel Other Bowel Symptoms History of constipation about 9 months ago, currently manages with metamucil Bowel Movement Frequency once aday Pelvic Clock Pelvic Clock 12-3 Guarding,Tenderness,Tightness Pelvic Clock 3-6 Guarding,Tenderness,Tightness Pelvic Clock 6-9 Guarding,Tenderness,Tightness Pelvic Clock 9-12 Guarding,Tenderness,Tightness Prolapse Cystocele Grade 2 Perineal Descent Resting Present Bearing Present Contraction Ability Voluntary Contraction Weak Voluntary Relaxation Weak Manual Muscle Testing Right 1 Manual Muscle Testing Anterior 1 Manual Muscle Testing Posterior 2 Muscle Endurance (Seconds) 3 Number of Quick Contractions In 10 3 Seconds Comments Pelvic Floor Comments Pt tends to bulge out with her abdominals PT-OP-Q Treatments Start: 12/04/20 13:13 Freq: Status: Active Protocol: Document 02/04/21 09:45 AMB (Rec: 02/04/21 14:24 AMB [email or web address]) Therapeutic Exercises Sitting Exercises 2 Sitting Exercise Name sit to stand Reps/Minutes PF first Comments challenging Neuro Re-Education Treatment Other Activities 1 Details sEMG Comments quick flics and long holds cues to relax TA PT-OP-T Assessment and Plan Start: 12/04/20 13:13 Freq: Status: Active Protocol: Document 02/04/21 10:03 AMB (Rec: 02/04/21 11:02 AMB [id number]) Physical Therapy Assessment Goals Two Impairment urgency Short Term Goal (STG) Aida will use urge management techniques to increase her voids from 45 minutes to 1.5 hours. STG Duration 4 weeks Care Home Goal (LTG) Aida will use urge management techniques to decrease from 3x nocturia to 2x nocturia. LTG Duration 8 weeks One Impairment weakness Short Term Goal (STG) Aida will contract her pelvic floor in standing for 5 seconds. STG Duration 4 weeks Care Home Goal (LTG) Aida will contract her pelvic floor while moving from sit to stand to decrease her stress incontinence. LTG Duration 8 weeks Assessment Summary Assessment Resting 1.7, avg long hold 5, max 10. Quick flicks max 16 avg 8. Pt was tending to use too much TA, but did better with cueing. Physical Therapy Plan Next Visit Focus/Plan Next Visit Plan follow up on pf contract with sit to stand
--- NOTE | 2021-02-17 14:07 | PT.OTN ---
Current Diagnoses Mixed incontinence (02/17/21) Physical Therapy Treatment Note PT-OP-A Visit Information Start: 12/04/20 13:13 Freq: Status: Active Protocol: Document 02/17/21 09:09 AMB (Rec: 02/17/21 09:51 AMB [id number]) Out-Patient Physical Therapy Visit Information Visit Information Visit Type Treatment Note Visit Start Time 09:05 Visit Stop Time 09:45 Total Visit Minutes 40 Visit Number 4 PT-OP-B Current Condition Start: 12/04/20 13:13 Freq: Status: Active Protocol: Document 12/23/20 13:00 AMB (Rec: 12/23/20 13:23 AMB [id number]) Current Condition History of Current Condition Onset Date 2004 Current Complaints mixed urinary incontinence. History of Current Condition Does have stage III kidney disease, used to have chronic UTIs. Going to the bathroom every 45 minutes, 2-3x at night. Stress incontinence and urinary frequency. 3 C- sections. Menopause at age 52. Is having hot flashes and sweats. Thinks she urinates for 3-4 seconds during the day . Constipation in April but now better regulated. PT-OP-C Subjective Start: 12/04/20 13:13 Freq: Status: Active Protocol: Document 02/17/21 09:09 AMB (Rec: 02/17/21 09:51 AMB [id number]) OP-PT Subjective Patient Comments Patient Comments Pt reports she has not had as many large leaks. PT-OP-I Pelvic Floor Start: 12/04/20 13:13 Freq: Status: Active Protocol: Document 12/23/20 13:00 AMB (Rec: 12/23/20 14:31 AMB [email or web address]) Pelvic Floor Assessment Urine Pelvic Floor Surgery Yes: C-sectionx3 Leakage Size Large Leakage Cause Cough,Lifting,Sneeze,Urge Leaks Per Day 6 Voiding Frequency every 45 min Nocturia 3 Pads Used In 24 Hours 5 Urine Pad Type Maxi Pad Bowel Other Bowel Symptoms History of constipation about 9 months ago, currently manages with metamucil Bowel Movement Frequency once aday Pelvic Clock Pelvic Clock 12-3 Guarding,Tenderness,Tightness Pelvic Clock 3-6 Guarding,Tenderness,Tightness Pelvic Clock 6-9 Guarding,Tenderness,Tightness Pelvic Clock 9-12 Guarding,Tenderness,Tightness Prolapse Cystocele Grade 2 Perineal Descent Resting Present Bearing Present Contraction Ability Voluntary Contraction Weak Voluntary Relaxation Weak Manual Muscle Testing Right 1 Manual Muscle Testing Anterior 1 Manual Muscle Testing Posterior 2 Muscle Endurance (Seconds) 3 Number of Quick Contractions In 10 3 Seconds Comments Pelvic Floor Comments Pt tends to bulge out with her abdominals PT-OP-Q Treatments Start: 12/04/20 13:13 Freq: Status: Active Protocol: Document 02/17/21 09:09 AMB (Rec: 02/17/21 09:51 AMB [id number]) Therapeutic Exercises Supine Exercises 2 Supine Exercise Name bridges Reps/Minutes 5 Comments cues for PF, breath 1 Supine Exercise Name roll in Reps/Minutes 10 Comments with pf contract quick flicks/long holds Supine Exercise Name with bolsters Comments cues for breath Sitting Exercises 2 Sitting Exercise Name sit to stand Reps/Minutes PF first Comments challenging 1 Sitting Exercise Name roll in Comments with cues for lift/breath Standing Exercises 1 Standing Exercise Name WBOS, stride stance Comments quick flicks PT-OP-T Assessment and Plan Start: 12/04/20 13:13 Freq: Status: Active Protocol: Document 02/17/21 09:09 AMB (Rec: 02/17/21 09:51 AMB [id number]) Physical Therapy Assessment Goals Two Impairment urgency Short Term Goal (STG) Aida will use urge management techniques to increase her voids from 45 minutes to 1.5 hours. STG Duration 4 weeks Detention Goal (LTG) Aida will use urge management techniques to decrease from 3x nocturia to 2x nocturia. LTG Duration 8 weeks One Impairment weakness Short Term Goal (STG) Adia will contract her pelvic floor in standing for 5 seconds. STG Duration 4 weeks Detention Goal (LTG) Aida will contract her pelvic floor while moving from sit to stand to decrease her stress incontinence. LTG Duration 8 weeks Assessment Summary Assessment Discussed normal bladder function with patient and encouraged in continued strengthening in standing and with movement. Physical Therapy Plan Next Visit Focus/Plan Next Note Type Treatment Note Next Visit Plan last scheduled appointment
--- NOTE | 2021-05-24 15:47 | PT.OPDS ---
Current Diagnoses Mixed incontinence (02/17/21) Visit Care Team Role Provider Type Terrence Arora MD Family Provider Physician Primary Care Provider Specialty: Family Practice Address: [address] [address], [place], [address] Email: [email or web address] Lorin Bradley MD Attending Provider Non-Staff Referring Provider Specialty: Urology Address: [address] [place] [address], [id number] Email: Visit Number Visit Number 4 Discharge Summary PT-OP-B Current Condition Start: 12/04/20 13:13 Freq: Status: Active Protocol: Document 12/23/20 13:00 AMB (Rec: 12/23/20 13:23 AMB [id number]) Current Condition History of Current Condition Onset Date 2004 Current Complaints mixed urinary incontinence. History of Current Condition Does have stage III kidney disease, used to have chronic UTIs. Going to the bathroom every 45 minutes, 2-3x at night. Stress incontinence and urinary frequency. 3 C- sections. Menopause at age 52. Is having hot flashes and sweats. Thinks she urinates for 3-4 seconds during the day . Constipation in April but now better regulated. PT-OP-C Subjective Start: 12/04/20 13:13 Freq: Status: Active Protocol: Document 02/17/21 09:09 AMB (Rec: 02/17/21 09:51 AMB [id number]) OP-PT Subjective Patient Comments Patient Comments Pt reports she has not had as many large leaks. PT-OP-I Pelvic Floor Start: 12/04/20 13:13 Freq: Status: Active Protocol: Document 12/23/20 13:00 AMB (Rec: 12/23/20 14:31 AMB [id number]) Pelvic Floor Assessment Urine Pelvic Floor Surgery Yes: C-sectionx3 Leakage Size Large Leakage Cause Cough,Lifting,Sneeze,Urge Leaks Per Day 6 Voiding Frequency every 45 min Nocturia 3 Pads Used In 24 Hours 5 Urine Pad Type Maxi Pad Bowel Other Bowel Symptoms History of constipation about 9 months ago, currently manages with metamucil Bowel Movement Frequency once aday Pelvic Clock Pelvic Clock 12-3 Guarding,Tenderness,Tightness Pelvic Clock 3-6 Guarding,Tenderness,Tightness Pelvic Clock 6-9 Guarding,Tenderness,Tightness Pelvic Clock 9-12 Guarding,Tenderness,Tightness Prolapse Cystocele Grade 2 Perineal Descent Resting Present Bearing Present Contraction Ability Voluntary Contraction Weak Voluntary Relaxation Weak Manual Muscle Testing Right 1 Manual Muscle Testing Anterior 1 Manual Muscle Testing Posterior 2 Muscle Endurance (Seconds) 3 Number of Quick Contractions In 10 3 Seconds Comments Pelvic Floor Comments Pt tends to bulge out with her abdominals PT-OP-T Assessment and Plan Start: 12/04/20 13:13 Freq: Status: Active Protocol: Document 05/24/21 15:46 AMB (Rec: 05/24/21 15:47 AMB [id number]) Physical Therapy Assessment Goals Two Impairment urgency Short Term Goal (STG) Aida will use urge management techniques to increase her voids from 45 minutes to 1.5 hours. STG Duration [address] Goal (LTG) Aida will use urge management techniques to decrease from 3x nocturia to 2x nocturia. LTG Duration 8 weeks One Impairment weakness Short Term Goal (STG) Aida will contract her pelvic floor in standing for 5 seconds. STG Duration [address] Goal (LTG) iAda will contract her pelvic floor while moving from sit to stand to decrease her stress incontinence. LTG Duration 8 weeks Assessment Summary Assessment Aida has not been seen in physical therapy for 3 months, she canceled her remaining appointments and has not followed up. At her last visit she was encouraged to continue with pelvic floor strengthening. Physical Therapy Plan Discharge Physical Therapy Discharge Reasons No Longer Attending PT
== END 2021-05-25 09:57 ==
LOC: PHYS 09:00
PROVIDERS: Family Provider Family Medicine; PCP Family Medicine; Referring Provider Urology; Visit Provider Urology
DX: N39.46 Mixed incontinence (principal)
CPT/HCPCS: 97110; 97112; 97161

== ENCOUNTER → 2021-02-17 10:05 | Outpatient (CLI) | payer MEDICARE, SELFPAY ==
[2021-02-17 10:53] LABS: BUN Creatinine Ratio 16.2 (6-22); Blood Urea Nitrogen 21 mg/dL (7-17); Calcium 9.9 mg/dL (8.4-10.2); Carbon Dioxide 28 mmol/L (22-32); Chloride 101 mmol/L (98-107); Estimated Glomerular Filt Rate 39.1 mL/min (>60); Glucose 98 mg/dL (80-110); HEMOLYSIS < 15 (0-50); Potassium 4.7 mmol/L (3.4-5.1); Sodium 137 mmol/L (137-145)
--- NOTE | 2021-02-17 11:19 | DI.CT.S_ITS ---
PROCEDURE: CT ABDOMEN WO CON INDICATIONS: Epigastric pain with some mid abd pains TECHNIQUE: After the administration of oral contrast, 5 mm thick sections acquired from the diaphragms to the iliac crests. 5 mm coronal and sagittal reformats were then performed. For radiation dose reduction, the following was used: automated exposure control, adjustment of mA and/or kV according to patient size. COMPARISON: [facility], CT, KIDNEY/ URETER/BLADDER, 06/01/2011, 9:32. [facility], CT, CT CHEST HIGH RESOLUTION, 10/11/2019, 10:13. FINDINGS: ABDOMEN: Lung bases: Scattered subsegmental atelectasis and/or scarring. No focal consolidation. Heart: Normal in size. No pericardial effusion. Liver: Subcentimeter hepatic foci are statistically cysts or hemangiomas, although technically too small to characterize accurately and therefore nonspecific. Gallbladder: Surgically absent. Bile ducts: Prominent dilatation of the intra and extrahepatic bile ducts. The distal common bile duct measures 15 mm in diameter on image 28/2. Pancreas: Normal. Spleen: Normal. Adrenals: Normal. Kidneys and Ureters: Normal. Stomach and duodenum: Normal. Bowel: Large amount of stool present in the visualized loops of colon. No specific transition point is identified Other: No free fluid or air. Abdominal nodes: Normal. Aorta and IVC: Normal in size. Scattered atheromatous calcifications in the aorta. Ventral wall: Normal. Bones: No suspicious bony lesions. No vertebral body compression fractures. Diffuse spondylytic changes and facet disease. IMPRESSION: Prominent intra and extrahepatic bile duct dilatation, technically age unknown. This has progressed since a remote study dated 06/01/11 although still indeterminate acuity. Please correlate clinically and with LFTs. Status post cholecystectomy. Large amount of stool raising possibility of fecal retention/constipation. Dictated by: Sriram Ray M.D. on 02/17/2021 at 13:20 Approved by: Sriram Ray M.D. on 02/17/2021 at 13:26
== END ==
PROVIDERS: Family Provider Family Medicine; PCP Family Medicine; Referring Provider Family Medicine; Visit Provider Family Medicine
DX: N18.9 Chronic kidney disease, unspecified (principal); R10.13 Epigastric pain; Z90.49 Acquired absence of other specified parts of digestive tract
CPT/HCPCS: 36415; 74150; 80048

== ENCOUNTER → 2021-06-01 11:54 | Outpatient (CLI) | payer MEDICARE, SELFPAY ==
[2021-06-01 14:16] LABS: Add Manual Diff / Slide Review NO; Basophils Absolute Auto 100 /uL (0-100); Basophils Percent Auto 1.3 % (0-2); Eosinophils Absolute Auto 100 /uL (0-450); Eosinophils Percent Auto 1.9 % (2-4); Hematocrit 36.6 % (36-46); Hemoglobin 12.4 g/dL (12.0-16.0); Lymphocytes Absolute Auto 1400 /uL (1100-4500); Lymphocytes Percent Auto 18.6 % (25-40); Mean Corpuscular HGB Conc 33.9 % (30-36); Mean Corpuscular Hemoglobin 32.6 PG (26-34); Mean Corpuscular Volume 96.2 fL (80-100); Monocytes Absolute Auto 900 /uL (0-900); Monocytes Percent Auto 11.4 % (3-14); Neutrophils Absolute Auto 5200 /uL (1500-7000); Neutrophils Percent Auto 66.8 % (50-75); Platelet Count 211 X10^3/uL (150-400); Red Blood Cell Count 3.81 X10^6/uL (4.0-5.2); White Blood Cell Count 7.8 X10^3/uL (4.5-11.0)
[2021-06-01 15:45] LABS: Alanine Aminotransferase 15 IU/L (<35); Albumin 4.1 g/dL (3.5-5.0); Albumin Globulin Ratio 1.4 (1.0-2.8); Alkaline Phosphatase 54 U/L (38-126); Aspartate Aminotransferase 26 IU/L (14-36); BUN Creatinine Ratio 14.4 (6-22); Bilirubin Total 0.6 mg/dL (0.2-1.3); Blood Urea Nitrogen 16 mg/dL (7-17); Calcium 9.6 mg/dL (8.4-10.2); Carbon Dioxide 27 mmol/L (22-32); Chloride 102 mmol/L (98-107); Cholesterol 211 mg/dL (140-199); Estimated Glomerular Filt Rate 46.9 mL/min (>60); Glucose 88 mg/dL (80-110); HDL Cholesterol 83 mg/dL (40-60); HEMOLYSIS < 15 (0-50); LDL Cholesterol Calculated 112 mg/dL (<100); Potassium 4.8 mmol/L (3.4-5.1); Sodium 136 mmol/L (137-145); Total Protein 7.1 g/dL (6.3-8.2); Triglycerides 81 mg/dL (35-150)
[2021-06-01 15:49] LABS: Free T4, Direct Thyroxine 1.34 ng/dL (0.78-2.19)
[2021-06-01 16:03] LABS: Thyroid Stimulating Hormone 0.214 uIU/mL (0.47-4.68)
== END ==
PROVIDERS: Family Provider Family Medicine; PCP Family Medicine; Referring Provider Family Medicine; Visit Provider Family Medicine
DX: R68.83 Chills (without fever) (principal); I10 Essential (primary) hypertension; E03.9 Hypothyroidism, unspecified
CPT/HCPCS: 36415; 80053; 80061; 84439; 84443; 85025

== ENCOUNTER → 2021-08-06 08:48 | Outpatient (CLI) | payer MEDICARE, SELFPAY ==
[2021-08-06 11:21] LABS: COVID19 -Nasal RAPID Negative (Negative)
== END ==
PROVIDERS: Family Provider Family Medicine; PCP Family Medicine; Referring Provider Family Medicine; Visit Provider Family Medicine
DX: Z20.822 Contact with and (suspected) exposure to COVID-19 (principal)
CPT/HCPCS: 87635; C9803

== ENCOUNTER → 2021-08-06 08:51 | Outpatient (CLI) | payer MEDICARE, SELFPAY ==
--- NOTE | 2021-08-11 11:16 | PM.PFT.1 ---
Pulmonary Function Test Referral & Results Date Patient Seen: 08/06/21 Requesting provider: Ellis Marie Results: The spirometry demonstrates an FVC of 2.0 L which is 102% of predicted. The FEV1 was measured at 1.63 L which is 114% of predicted. The FEV1/FVC ratio was 82 which is 111% of predicted. The diffusing capacity was measured at 16.41 which is 86% of predicted. No hemoglobin value was provided, so no correction for potential anemia could be made, if appropriate. Interpretation: This study has done above demonstrates normal pulmonary function. There may be a minimal reduction in diffusing capacity but this could also be considered normal
== END ==
PROVIDERS: Family Provider Family Medicine; PCP Family Medicine; Referring Provider Internal Medicine Pulmonary Disease; Visit Provider Internal Medicine Pulmonary Disease
DX: R06.02 Shortness of breath (principal); Z20.822 Contact with and (suspected) exposure to COVID-19
CPT/HCPCS: 87635; 94010; 94729; C9803

== ENCOUNTER → 2021-08-18 09:05 | Outpatient (CLI) | payer MEDICARE, SELFPAY ==
--- NOTE | 2021-08-18 09:07 | DI.RAD.S_ITS ---
PROCEDURE: XR KNEE RT 3V INDICATIONS: RIGHT KNEE PAIN TECHNIQUE: Three views of the knee were acquired. COMPARISON: [facility], CR, XR KNEE LT 3V, 05/22/2020, 11:20. FINDINGS: Bones: No fractures or dislocations. Mild medial compartment joint space narrowing. No suspicious bony lesions. Soft tissues: Small joint effusion. 4 mm calcified body within the suprapatellar joint compartment. No suspicious soft tissue calcifications. Moderate medial and lateral compartment chondrocalcinosis IMPRESSION: 1. Mild medial compartment joint space narrowing. 2. Small joint effusion and possible intra-articular loose body. 3. Moderate chondrocalcinosis. Dictated by: Abigail Hartman M.D. on 08/18/2021 at 15:06 Approved by: Abigail Hartman M.D. on 08/18/2021 at 15:08
== END ==
PROVIDERS: Family Provider Family Medicine; PCP Family Medicine; Referring Provider Physical Medicine & Rehabilitation; Visit Provider Physical Medicine & Rehabilitation
DX: M11.261 Other chondrocalcinosis, right knee (principal); M25.461 Effusion, right knee; M19.011 Primary osteoarthritis, right shoulder; M19.012 Primary osteoarthritis, left shoulder; M17.0 Bilateral primary osteoarthritis of knee; N18.31 Chronic kidney disease, stage 3a; M47.27 Other spondylosis with radiculopathy, lumbosacral region; M47.22 Other spondylosis with radiculopathy, cervical region; M79.7 Fibromyalgia; M25.561 Pain in right knee
CPT/HCPCS: 20611; 73562; 99214; J0702

== ENCOUNTER → 2022-02-17 08:39 | Outpatient (CLI) | payer MEDICARE, SELFPAY ==
[2022-02-17 10:17] LABS: Add Manual Diff / Slide Review NO; Basophils Absolute Auto 100 /uL (0-100); Basophils Percent Auto 0.9 % (0-2); Eosinophils Absolute Auto 300 /uL (0-450); Eosinophils Percent Auto 3.9 % (2-4); Hematocrit 35.6 % (36-46); Hemoglobin 12.3 g/dL (12.0-16.0); Lymphocytes Absolute Auto 1300 /uL (1100-4500); Lymphocytes Percent Auto 18.1 % (25-40); Mean Corpuscular HGB Conc 34.5 % (30-36); Mean Corpuscular Hemoglobin 33.2 PG (26-34); Mean Corpuscular Volume 96.5 fL (80-100); Monocytes Absolute Auto 800 /uL (0-900); Monocytes Percent Auto 11.2 % (3-14); Neutrophils Absolute Auto 4600 /uL (1500-7000); Neutrophils Percent Auto 65.9 % (50-75); Platelet Count 193 X10^3/uL (150-400); Red Blood Cell Count 3.69 X10^6/uL (4.0-5.2); Red Cell Distribution Width 12.9 % (11.6-14.8)
[2022-02-17 10:46] LABS: Alanine Aminotransferase 20 IU/L (<35); Albumin 4.3 g/dL (3.5-5.0); Albumin Globulin Ratio 1.5 (1.0-2.8); Alkaline Phosphatase 79 U/L (38-126); Aspartate Aminotransferase 30 IU/L (14-36); BUN Creatinine Ratio 17.9 (6-22); Bilirubin Total 0.4 mg/dL (0.2-1.3); Blood Urea Nitrogen 20 mg/dL (7-17); Calcium 9.6 mg/dL (8.4-10.2); Carbon Dioxide 24 mmol/L (22-32); Chloride 100 mmol/L (98-107); Estimated Glomerular Filt Rate 48 mL/min (>60); Globulin 2.8 g/dL (1.7-4.1); Glucose 101 mg/dL (80-110); HEMOLYSIS < 15 (0-50); Potassium 4.7 mmol/L (3.4-5.1); Sodium 135 mmol/L (137-145); Total Protein 7.1 g/dL (6.3-8.2)
[2022-02-17 11:36] LABS: Thyroid Stimulating Hormone 0.021 uIU/mL (0.47-4.68)
[2022-02-17 11:49] LABS: Folate > 20.0 ng/mL (2.76-20.0); Vitamin B12 > 1000 pg/mL (239-931)
[2022-02-17 12:10] LABS: Free T4, Direct Thyroxine 1.68 ng/dL (0.78-2.19)
== END ==
PROVIDERS: Family Provider Family Medicine; PCP Family Medicine; Referring Provider Family Medicine; Visit Provider Family Medicine
DX: E03.9 Hypothyroidism, unspecified (principal); I10 Essential (primary) hypertension; Z86.2 Personal history of diseases of the blood and blood-forming organs and certain disorders involving the immune mechanism
CPT/HCPCS: 36415; 80053; 82607; 82746; 84439; 84443; 85025

== ENCOUNTER → 2022-06-06 11:24 | Outpatient (CLI) | payer MEDICARE, SELFPAY ==
--- NOTE | 2022-06-06 11:25 | DI.MRI.S_ITS ---
PROCEDURE: MR LUMBAR SPINE WO CON INDICATIONS: Radiculopathy, cervical region and lumbar region TECHNIQUE: Noncontrast sagittal T1 spin echo and T2 fast echo, sagittal STIR, and T2 fast spin echo through the lumbar spine. In cases with scoliosis, additional coronal T2 fast spin echo may be performed. COMPARISON: [facility], CR, XR LUMBAR SPINE MIN 4V, 02/20/2020, 14:26. [facility], CT, CT ABDOMEN WO CON, 02/17/2021, 11:47. [facility], CR, XR LUMBAR SPINE WITH OLBIQUES PLUS FLEXION EXTENSION, 12/14/2017, 10:27. [facility], MR, MR LUMBAR SPINE WO CON, 08/17/2017, 13:55. FINDINGS: Image quality: Excellent. Alignment and Curvature: There are 6 non rib-bearing lumbar vertebral bodies. However, for the purposes of this dictation, the highest non rib-bearing lumbar vertebral body is described as T12, and the vertebral body with pars defects is labeled as L5. The numbering system is therefore identical to the numbering system used on the previous MRI report. Bilateral L5 pars defects with grade 1 anterolisthesis of L5 on S1 measuring 4 mm. Trace retrolisthesis of L1 on L2. Bone Marrow: Marrow is of normal overall signal. No acute vertebral body compression fractures. Spinal Cord: Conus medullaris terminates at the T12-L1 level. Visualized cord demonstrates normal signal and size. Paraspinous Soft Tissues: No paravertebral masses. T12-L1: Unchanged central posterior superior disc extrusion behind the T12 vertebral body without canal stenosis. Disc bulge at the disc level. Facet hypertrophy. Mild central canal stenosis. Mild bilateral foraminal narrowing. L1-L2: Unchanged. Disc bulge. Borderline canal stenosis. Mild bilateral foraminal stenosis. L2-L3: Unchanged. Severe chronic disc height loss. New posterior disc plus osteophyte. Facet hypertrophy. Moderate central canal stenosis. Severe right foraminal narrowing with right foraminal L2 nerve root impingement. Mild to moderate left foraminal narrowing. L3-L4: Definite interval progression. Previously, there was moderate to severe canal stenosis. Reference previous images 9/3--sagittal T2 sequence and image 15/7--axial T2 sequence. Currently, there is severe or marked canal stenosis. Reference current image 7/2--sagittal T2 sequence and image 24/6--axial T2 sequence there is mild right foraminal narrowing and severe left foraminal narrowing with left foraminal L3 nerve root impingement.. L4-L5: Disc bulge. Facet hypertrophy. No central canal stenosis. Unchanged moderate to severe right foraminal narrowing and severe left foraminal narrowing. Again noted is impingement on the exiting left L4 nerve root. L5-S1: Bilateral L5 pars defects. Anterolisthesis of L5 on S1. No central canal stenosis. Severe bilateral foraminal narrowing with a degree of bilateral L5 foraminal narrowing. IMPRESSION: 1. Please note that the numbering system used in this dictation is the same as the numbering system on the previous MRI. There are actually 6 non rib-bearing lumbar vertebral bodies, but the lowest non rib-bearing vertebral body is described as L5, and has the pars defects. Careful correlation for correct surgical level is required. 2. Definite interval progression at L3-L4. There was previously moderate to severe canal stenosis. Canal stenosis is either severe or marked at this level. 3. Moderate canal stenosis at L2-L3. 4. Significant multilevel foraminal narrowing as described above. Findings include severe right foraminal narrowing at L2-L3, severe left foraminal narrowing at L3-L4, moderate to severe right foraminal narrowing and severe left foraminal narrowing at L4-L5, and severe bilateral foraminal narrowing at L5-S1. 5. Bilateral L5 pars defects with grade 1 anterolisthesis of L5 on S1 results in severe bilateral foraminal narrowing. Dictated by: Esdras Jordan M.D. on 06/06/2022 at 13:37 Approved by: Esdras Jordan M.D. on 06/06/2022 at 14:08
--- NOTE | 2022-06-06 11:25 | DI.MRI.S_ITS ---
PROCEDURE: MR CERVICAL SPINE WO CON INDICATIONS: Radiculopathy, cervical region and lumbar region TECHNIQUE: Noncontrast sagittal T1 spin echo and T2 fast spin echo, sagittal STIR, foraminal oblique sagittal T2 fast spin echo, and axial gradient echo or T2 fast spin echo through the cervical spine. COMPARISON: [facility], MR, MR CERVICAL SPINE WO CON, 08/17/2017, 13:16. FINDINGS: Image quality: Excellent. Alignment and Curvature: There is normal bony alignment. Bone Marrow: Degenerative edematous changes noted in the C2 odontoid process. Degenerative endplate changes noted in the mid cervical spine Spinal Cord: Visualized spinal cord has normal size and signal. No cerebellar tonsillar herniation. Paraspinous Soft Tissues: No paravertebral masses. Prevertebral soft tissues are normal in thickness. C1-2: Degenerative exuberant pannus at C1-2 has increased in the interval now measuring 8 mm in thickness, previously 6 mm. Mild to moderate central stenosis present. No cord edema. C2-C3: Disc space narrowing with hypertrophic facet joints results in mild central stenosis. Mild bilateral foraminal stenosis C3-C4: Disc space narrowing and hypertrophic facet joints present. Mild central and moderate bilateral foraminal stenosis. C4-C5: Disc space narrowing and posterior disc osteophyte complex results in [id number] central stenosis. Moderate bilateral foraminal stenosis present. C5-C6: Disc space narrowing, hypertrophic facet joints and ligamentum flavum laxity results in [id number] central stenosis. Moderate bilateral foraminal stenosis C6-C7: Disc space narrowing and posterior disc osteophyte complex present. Mild central stenosis. Moderate right and severe left foraminal stenosis. C7-T1: Mild disc space narrowing and circumferential disc bulge. No central stenosis. No foraminal stenosis IMPRESSION: 1. 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 2. Multilevel degenerative disc disease and arthropathy with varying degrees of central and foraminal stenosis, as above Approved by: Miguel Calderón M.D. on 06/06/2022 at 15:18
== END ==
PROVIDERS: Family Provider Family Medicine; PCP Family Medicine; Referring Provider Family Medicine; Visit Provider Family Medicine
DX: M50.11 Cervical disc disorder with radiculopathy, high cervical region (principal); M47.22 Other spondylosis with radiculopathy, cervical region; M48.02 Spinal stenosis, cervical region; M48.061 Spinal stenosis, lumbar region without neurogenic claudication; M43.17 Spondylolisthesis, lumbosacral region
CPT/HCPCS: 72141; 72148

== ENCOUNTER → 2022-06-14 10:48 | Outpatient (CLI) | payer MEDICARE, SELFPAY ==
[2022-06-14 11:24] LABS: Add Manual Diff / Slide Review NO; Basophils Absolute Auto 100 /uL (0-100); Eosinophils Absolute Auto 200 /uL (0-450); Eosinophils Percent Auto 3.1 % (2-4); Hematocrit 37.7 % (36-46); Hemoglobin 12.5 g/dL (12.0-16.0); Lymphocytes Absolute Auto 1500 /uL (1100-4500); Lymphocytes Percent Auto 21.2 % (25-40); Mean Corpuscular HGB Conc 33.2 % (30-36); Mean Corpuscular Hemoglobin 32.3 PG (26-34); Mean Corpuscular Volume 97.3 fL (80-100); Monocytes Absolute Auto 900 /uL (0-900); Neutrophils Absolute Auto 4200 /uL (1500-7000); Neutrophils Percent Auto 61.7 % (50-75); Platelet Count 236 X10^3/uL (150-400); Red Blood Cell Count 3.88 X10^6/uL (4.0-5.2); Red Cell Distribution Width 13.2 % (11.6-14.8); White Blood Cell Count 6.9 X10^3/uL (4.5-11.0)
[2022-06-14 11:46] LABS: C-Reactive Protein Quant < 0.5 mg/dL (<1.0)
[2022-06-14 11:48] LABS: Alanine Aminotransferase 23 IU/L (<35); Albumin 4.3 g/dL (3.5-5.0); Albumin Globulin Ratio 1.4 (1.0-2.8); Alkaline Phosphatase 60 U/L (38-126); Aspartate Aminotransferase 35 IU/L (14-36); BUN Creatinine Ratio 16.5 (6-22); Bilirubin Total 0.5 mg/dL (0.2-1.3); Blood Urea Nitrogen 19 mg/dL (7-17); Calcium 9.3 mg/dL (8.4-10.2); Carbon Dioxide 28 mmol/L (22-32); Chloride 102 mmol/L (98-107); Cholesterol 188 mg/dL (140-199); Estimated Glomerular Filt Rate 47 mL/min (>60); Glucose 93 mg/dL (80-110); HDL Cholesterol 70 mg/dL (40-60); HEMOLYSIS < 15 (0-50); LDL Cholesterol Calculated 99 mg/dL (<100); Potassium 4.5 mmol/L (3.4-5.1); Sodium 135 mmol/L (137-145); Total Protein 7.3 g/dL (6.3-8.2); Triglycerides 96 mg/dL (35-150)
[2022-06-14 11:53] LABS: Free T4, Direct Thyroxine 1.52 ng/dL (0.78-2.19)
[2022-06-14 12:46] LABS: Folate > 20.0 ng/mL (2.76-20.0); Vitamin B12 > 1000 pg/mL (239-931)
[2022-06-14 12:47] LABS: Thyroid Stimulating Hormone 0.135 uIU/mL (0.47-4.68)
== END ==
PROVIDERS: Family Provider Family Medicine; PCP Family Medicine; Referring Provider Internal Medicine Rheumatology; Visit Provider Internal Medicine Rheumatology
DX: M79.7 Fibromyalgia (principal); E03.9 Hypothyroidism, unspecified; I10 Essential (primary) hypertension; E78.5 Hyperlipidemia, unspecified; R53.83 Other fatigue; Z86.2 Personal history of diseases of the blood and blood-forming organs and certain disorders involving the immune mechanism
CPT/HCPCS: 36415; 80053; 80061; 82607; 82746; 84439; 84443; 85025; 86140

== ENCOUNTER → 2022-12-13 09:20 | Outpatient (CLI) | payer MEDICARE, SELFPAY ==
--- NOTE | 2022-12-13 09:21 | DI.RAD.S_ITS ---
PROCEDURE: XR KNEE RT 3V INDICATIONS: RIGHT KNEE PAIN TECHNIQUE: 3 views of the knee were acquired. COMPARISON: [facility], , XR KNEE RT 3V, 05/22/2020, 11:20. [facility], , XR KNEE RT 3V, 08/18/2021, 9:18. FINDINGS: Bones: No fractures or dislocations. No suspicious bony lesions. Minimal joint space narrowing. Small tricompartmental osteophytes. Soft tissues: No joint effusion. No suspicious soft tissue calcifications. Chondrocalcinosis. 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 Chondrocalcinosis. Dictated by: Drew Johns M.D. on 12/13/2022 at 9:54 Approved by: Drew Johns M.D. on 12/13/2022 at 9:55
--- NOTE | 2022-12-13 09:21 | DI.RAD.S_ITS ---
PROCEDURE: XR KNEE LT 3V INDICATIONS: LEFT KNEE PAIN TECHNIQUE: 3 views of the knee were acquired. COMPARISON: [facility], CR, XR KNEE LT 3V, 05/22/2020, 11:20. [facility], CR, XR KNEE RT 3V, 08/18/2021, 9:18. FINDINGS: Bones: No fractures or dislocations. No suspicious bony lesions. Mild degenerative changes. Soft tissues: No joint effusion. No suspicious soft tissue calcifications. Chondrocalcinosis. IMPRESSION: Mild degenerative changes are not significantly changed. Chondrocalcinosis. Dictated by: Drew Johns M.D. on 12/13/2022 at 9:52 Approved by: Drew Johns M.D. on 12/13/2022 at 9:54
--- NOTE | 2022-12-13 09:21 | DI.RAD.S_ITS ---
PROCEDURE: XR SHOULDER RT MIN 2V INDICATIONS: RIGHT SHOULDER PAIN TECHNIQUE: 3 views of the shoulder were acquired. COMPARISON: [facility], , XR SHOULDER RT MIN 2V, 12/10/2020, 10:46. FINDINGS: Bones: No fractures or dislocations. Moderate right shoulder degenerative changes. Not significantly changed. No suspicious bony lesions. Visualized ribs appear intact. Soft tissues: No suspicious soft tissue calcifications. IMPRESSION: Moderate right shoulder DJD is not significantly changed. Dictated by: Drew Johns M.D. on 12/13/2022 at 9:58 Approved by: Drew Johns M.D. on 12/13/2022 at 9:58
--- NOTE | 2022-12-13 09:21 | DI.RAD.S_ITS ---
PROCEDURE: XR SHOULDER LT MIN 2V INDICATIONS: LEFT SHOULDER PAIN TECHNIQUE: 3 views of the shoulder were acquired. COMPARISON: [facility], CR, XR SHOULDER LT MIN 2V, 12/10/2020, 10:46. [facility], CR, XR SHOULDER RT MIN 2V, 12/10/2020, 10:46. FINDINGS: Bones: No fractures or dislocations. Mild to moderate degenerative change is are not significantly changed. No suspicious bony lesions. Visualized ribs appear intact. Soft tissues: No suspicious soft tissue calcifications. IMPRESSION: [id number] left shoulder DJD is not significantly changed Dictated by: Drew Johns M.D. on 12/13/2022 at 9:55 Approved by: Drew Johns M.D. on 12/13/2022 at 9:58
[2022-12-13 13:16] LABS: Add Manual Diff / Slide Review NO; Basophils Absolute Auto 100 /uL (0-100); Eosinophils Absolute Auto 100 /uL (0-450); Hematocrit 36.7 % (36-46); Hemoglobin 12.6 g/dL (12.0-16.0); Lymphocytes Absolute Auto 1200 /uL (1100-4500); Lymphocytes Percent Auto 17.9 % (25-40); Mean Corpuscular HGB Conc 34.5 % (30-36); Mean Corpuscular Hemoglobin 33.5 PG (26-34); Mean Corpuscular Volume 97.1 fL (80-100); Monocytes Absolute Auto 700 /uL (0-900); Monocytes Percent Auto 9.8 % (3-14); Neutrophils Absolute Auto 4900 /uL (1500-7000); Neutrophils Percent Auto 70.3 % (50-75); Platelet Count 230 X10^3/uL (150-400); Red Blood Cell Count 3.78 X10^6/uL (4.0-5.2); Red Cell Distribution Width 13.5 % (11.6-14.8)
[2022-12-13 13:32] LABS: Erythrocyte Sedimentation Rate 7 MM/HR (0-20)
[2022-12-13 14:04] LABS: Alanine Aminotransferase 25 IU/L (<35); Albumin 4.1 g/dL (3.5-5.0); Albumin Globulin Ratio 1.5 (1.0-2.8); Alkaline Phosphatase 74 U/L (38-126); Aspartate Aminotransferase 37 IU/L (14-36); BUN Creatinine Ratio 16.5 (6-22); Bilirubin Total 0.4 mg/dL (0.2-1.3); Blood Urea Nitrogen 23 mg/dL (7-17); C-Reactive Protein Quant < 0.5 mg/dL (<1.0); Calcium 9.1 mg/dL (8.4-10.2); Carbon Dioxide 24 mmol/L (22-32); Chloride 97 mmol/L (98-107); Cholesterol 208 mg/dL (140-199); Estimated Glomerular Filt Rate 37 mL/min (>60); Globulin 2.8 g/dL (1.7-4.1); Glucose 108 mg/dL (80-110); HDL Cholesterol 84 mg/dL (40-60); HEMOLYSIS < 15 (0-50); LDL Cholesterol Calculated 101 mg/dL (<100); Magnesium 2.1 mg/dL (1.6-2.3); Potassium 4.3 mmol/L (3.4-5.1); Sodium 131 mmol/L (137-145); Total Protein 6.9 g/dL (6.3-8.2); Triglycerides 114 mg/dL (35-150)
[2022-12-13 14:15] LABS: Free T3, Triiodothyronine Free 3.85 pg/mL (2.77-5.27)
[2022-12-13 14:29] LABS: TSH w/ Reflex to FT4 3.66 uIU/mL (0.47-4.68)
== END ==
PROVIDERS: Family Provider Family Medicine; PCP Family Medicine; Referring Provider Physical Medicine & Rehabilitation; Visit Provider Physical Medicine & Rehabilitation
DX: M19.012 Primary osteoarthritis, left shoulder (principal); M19.011 Primary osteoarthritis, right shoulder; M17.0 Bilateral primary osteoarthritis of knee; E03.9 Hypothyroidism, unspecified; I10 Essential (primary) hypertension; M11.262 Other chondrocalcinosis, left knee; M11.261 Other chondrocalcinosis, right knee; M25.511 Pain in right shoulder; M25.512 Pain in left shoulder; M25.561 Pain in right knee
CPT/HCPCS: 36415; 73030; 73562; 80053; 80061; 83735; 84443; 84481; 85025; 85651; 86140

== ENCOUNTER → 2023-02-16 09:31 | Outpatient (CLI) | payer MEDICARE, SELFPAY ==
--- NOTE | 2023-02-16 | DI.RAD.S_ITS ---
Bone Density Report Name: FAUZIA MARTINEZ Age: 87 Sex: Female Ethnicity: White Date of : 1935 Indication: osteopenia; Referring Provider: DARREL BUSTAMANTE Study: Bone densitometry was performed. Exam Date: February 16, 2023 Accession number: [id number] Bone Density: Region BMD T-score Z-score Classification AP Spine(L1, L2) 0.755 -2.0 0.6 Osteopenia Femoral Neck (Left) 0.519 -3.0 -0.5 Osteoporosis Total Hip (Left) 0.698 -2.0 0.3 Osteopenia Femoral Neck (Right) 0.526 -2.9 -0.4 Osteoporosis Total Hip (Right) 0.694 -2.0 0.3 Osteopenia Total Hip Mean 0.696 -2.0 0.3 Osteopenia World Health Organization criteria for BMD impression classify patients as: Normal (T-score at or above -1.0), Osteopenia (T-score between -1.0 and -2.5), or Osteoporosis (T-score at or below -2.5). 10-year Fracture Risk: FRAX not reported because: Some T-score for Spine Total or Hip Total or Femoral Neck at or below -2.5 Previous Exams: -- Region Exam Age BMD T-score BMD Change BMD Change Date g/cm2 vs Baseline vs Previous -- AP Spine (L1-L2) 02/16/2023 87 0.755 -2.0 -0.056 (-6.9%)# -0.056 (-6.9%)# 04/23/2013 77 0.811 -1.5 Total Hip(Left) 02/16/2023 87 0.698 -2.0 -0.140 (-16.7%)# -0.140 (-16.7%)# 04/23/2013 77 0.838 -0.9 Total Hip(Right) 02/16/2023 87 0.694 -2.0 -0.182 (-20.8%)# -0.182 (-20.8%)# 04/23/2013 77 0.876 -0.5 -- *Denotes significance at 95% confidence level, LSC for AP Spine = 0.022 g/cm2, LSC for Total Hip = 0.027 g/cm2 # Denotes dissimilar scan types or analysis methods Impression: The patient has osteoporosis, based on the Left Femoral Neck T-score. No significant bone loss was observed. Discussion: INCREASED RISK OF FRACTURE. BONE DENSITY IS UNDESIRABLY LOW AT ONE OR MORE SKELETAL SITES, CONSISTENT WITH POSTMENOPAUSAL OSTEOPOROSIS. This patient's lowest T-score meets the World Health Organization's (WHO) criteria for osteoporosis at one or more sites (T-score -2.5 or below). In untreated patients, the risk of osteoporotic fracture increases approximately two-fold for each 1.0 SD decrease in T-score. Low bone density is not the only risk factor for fracture; also consider factors such as patient's age, frailty or poor health, risk of falling, risk of injury, previous osteoporotic fracture, family history of osteoporosis, cigarette smoking, low body weight, etc. Not everyone with low bone mineral density has osteoporosis; osteomalacia and other metabolic bone disorders should also be considered. Patients who have osteoporosis should be evaluated for specific diseases and conditions (secondary causes) that may cause or contribute to bone loss. The [place] [employer]ocr[employer] (AACE) and National Osteoporosis Foundation (NOF) recommend pharmacologic intervention for all postmenopausal women whose T-score is in this range. The patient should follow a healthful lifestyle (good nutrition with adequate calcium and vitamin D, and appropriate weight-bearing exercise). Follow-Up: Consider a repeat BMD and Vertebral Fracture Assessment (VFA) exam in 2 years or sooner if medically necessary, to reassess this patient's status. Reported by: [facility] SHANNAN MENDOZA M.D. on 02/16/2023 10:28:00 AM.
== END ==
PROVIDERS: Family Provider Family Medicine; PCP Family Medicine; Referring Provider Family Medicine; Visit Provider Family Medicine
DX: M81.0 Age-related osteoporosis without current pathological fracture
CPT/HCPCS: 77080

== ENCOUNTER → 2023-10-17 09:41 | Outpatient (CLI) | payer MEDICARE, SELFPAY ==
[2023-10-17 11:35] LABS: Alanine Aminotransferase 14 IU/L (<35); Albumin 4.1 g/dL (3.5-5.0); Albumin Globulin Ratio 1.4 (1.0-2.8); Alkaline Phosphatase 81 U/L (38-126); Aspartate Aminotransferase 25 IU/L (14-36); BUN Creatinine Ratio 26.5 (6-22); Bilirubin Total 0.6 mg/dL (0.2-1.3); Blood Urea Nitrogen 35 mg/dL (7-17); Calcium 9.2 mg/dL (8.4-10.2); Carbon Dioxide 24 mmol/L (22-32); Chloride 106 mmol/L (98-107); Estimated Glomerular Filt Rate 39 mL/min (>60); Glucose 109 mg/dL (80-110); HEMOLYSIS < 15 (0-50); Potassium 4.3 mmol/L (3.4-5.1); Sodium 140 mmol/L (137-145); Total Protein 7.1 g/dL (6.3-8.2)
[2023-10-17 11:43] LABS: NT-proBNP (BNP-Adult 18+) 1760 pg/mL (<450)
[2023-10-17 11:47] LABS: Free T4, Direct Thyroxine 1.32 ng/dL (0.78-2.19)
[2023-10-17 11:51] LABS: Appearance Urine UA CLEAR; Bilirubin Urine UA NEGATIVE (NEGATIVE); Color Urine UA YELLOW; Glucose Urine UA NEGATIVE (Negative); Ketones Urine UA NEGATIVE (NEGATIVE); Leukocyte Esterase Urine UA NEGATIVE (NEGATIVE); Nitrite Urine UA NEGATIVE (Negative); Occult Blood Urine UA NEGATIVE (Negative); Protein Urine UA NEGATIVE (Negative); Urobilinogen Urine UA 0.2 E.U./dL (0.2)
[2023-10-17 12:01] LABS: Thyroid Stimulating Hormone 7.14 uIU/mL (0.47-4.68)
[2023-10-17 12:22] LABS: Urine Volume 10mL (spun)
[2023-10-17 12:27] LABS: Bacteria Urine Many (>30); Culture Indicated Urine Cult Not Indicated; RBC Urine 0-1/HPF (0-5/HPF); Squamous Epithelial Cell Urine 0-1 /HPF (0-5/HPF); WBC Urine 0-1/HPF (0-5/HPF)
[2023-10-18 14:39] LABS: Osmolality, Serum 304 mOsmol/kg (280-301)
== END ==
PROVIDERS: Family Provider Family Medicine; PCP Family Medicine; Referring Provider Family Medicine; Visit Provider Family Medicine
DX: I50.32 Chronic diastolic (congestive) heart failure (principal); R35.0 Frequency of micturition
CPT/HCPCS: 36415; 80053; 81001; 83880; 83930; 84439; 84443